=== PATIENT | male | born 1985 | race Caucasian/White ===

== ENCOUNTER 2018-04-29 13:38 | Inpatient (IN) ==
[2018-04-29] MEDS ORDERED: MORPHINE IV ONE (14:12)
[2018-04-29] MEDS ORDERED: ZOSYN 3.375 GM in NS 50 ML IV ONE (14:12)
[2018-04-29] MEDS ORDERED: ZOFRAN IV ONE (14:12)
[2018-04-29] MEDS ORDERED: NS 1,000 ML IV ONE (14:12)
--- NOTE | 2018-04-29 14:29 | Diag Imaging Result Doc PS360 ---
EXAM: CHEST-PORTABLE HISTORY: Short of breath TECHNIQUE: Portable chest COMPARISON: None. FINDINGS: The lungs are well expanded. The heart is not enlarged. There right jugular portacatheter. No pneumothorax. The vessels are not distended. There are no infiltrates. No effusion identified. There are thoracic rods. IMPRESSION: Negative exam. Electronically signed by Reinaldo Isabel 04/29/2018 2:26 PM
[2018-04-29 15:48] LABS: BASO# 0.19 X1000 (0.0-0.2); BASO% 1.2 % (0.0-0.8); EOS# 0.17 X1000 (0.0-0.7); HEMATOCRIT 39.7 % (42.0-52.0); HEMOGLOBIN 13.7 g/dL (14.0-18.0); IMM GRAN% 5.5 % (0.0-0.5); LYMPH# 1.72 X1000 (1.2-3.4); LYMPH% 10.6 % (20.5-51.1); MCH 27.9 PG (27-31); MCHC 34.5 g/dL (33-37); MCV 80.9 FL (81-99); MONO# 1.38 X1000 (0.11-0.59); MONO% 8.5 % (1.7-9.3); MPV 10.8 FL (7.4-10.4); NEUT# 11.86 X1000 (1.4-6.5); NEUT% 73.2 % (42.2-75.2); PLT 181 X1000 (130-400); RBC 4.91 XMIL (4.7-6.1); RDW 15.5 % (11.5-14.5); WBC 16.22 X1000 (4.8-10.8)
[2018-04-29 15:54] LABS: INR 0.98; PROTIME 13.8 Seconds (11.0-16.0)
[2018-04-29 16:07] LABS: ESTIMATED GFR > 60
[2018-04-29 16:09] LABS: AGAP 15; ALBUMIN 2.8 g/dL (3.5-5.0); ALKALINE PHOSPHATASE 223 U/L (32-122); BUN 8 mg/dL (8-22); C REACTIVE PROT QUANT 91.99 mg/L (0.00-5.00); CALCIUM 8.5 mg/dL (8.8-10.2); CHLORIDE 80 mmol/L (98-107); COSMO 249; CREATININE 0.6 mg/dL (0.7-1.2); GLUCOSE 87 mg/dL (70-104); GOT 16 U/L (10-34); GPT 11 U/L (10-44); POTASSIUM 3.9 mmol/L (3.5-5.1); SODIUM 125 mmol/L (136-145); TCO2 30 mmol/L (25-35); TOTAL BILIRUBIN 0.34 mg/dL (0.20-1.00); TOTAL PROTEIN 5.5 g/dL (6.3-8.3)
--- NOTE | 2018-04-29 16:51 | PROVIDER DOCUMENTATION ---
This chart was entered by Kimmie oRjas Scribe, acting as scribe for Marcial Candelario MD. HPI-General Adult - General Stated Complaint: POSS SEPSIS Time Seen by Provider: 04/29/18 14:09 Source: patient Allergies/Adverse Reactions: Patient Allergies Allergy/AdvReac Type Severity Reaction Status Date / Time No Known Allergies Allergy Verified 04/29/18 15:55 - History of Present Illness -Gen Adult Nature of Presenting Problems: Patient is a 32 year old male who presents to the ED with possible sepsis. Dr. Garrison's staff member stated patient was getting blood work done today and found drainage coming from patient's port. Patient denies fever and chills. Patient has carcinoma with unknown origin. Patient states generalized body aches. Patient states receiving one dose of Vanc at [facility] prior to arrival. Location of Pain/Injury: reports: generalized Pain Radiation: reports: no radiation Quality of Pain: reports: aching Severity: reports: mild Onset/Duration: reports: unsure Timing: reports: still present Context/Activities at Onset: reports: light activity Modifying Factors: improves with: nothing Associated Symptoms: reports: denies symptoms Similar Symptoms Previously?: No Recently seen or treated by another doctor?: Yes Review of Systems - Adult - REVIEW OF SYSTEMS - ADULT Constitutional: reports: no symptoms reported. denies: chills, fever, fatique Eyes: reports: no symptoms reported Ears, Nose, Mouth & Throat: reports: no symptoms reported Cardiovascular: reports: no symptoms reported Respiratory: reports: no symptoms reported Gastrointestinal: reports: no symptoms reported Genitourinary: reports: no symptoms reported Musculoskeletal: reports: muscle aches (generalized). denies: back pain, neck pain Integumentary: reports: no symptoms reported Neurological: reports: no symptoms reported Psychiatric: reports: no symptoms reported Endocrine: reports: no symptoms reported Hematologic/Lymphatic: reports: no symptoms reported Allergic/Immunologic: reports: no symptoms reported All Other Systems: Reviewed and Negative Past History - Adult - PAST MEDICAL HISTORY-ADULT Review of Records: reports: Nursing Assessment Review, Medications Reviewed, Social history reviewed & non-contributory. Major Childhood Illnesses: reports: denies history Cardiovascular: reports: denies history Respiratory: reports: denies history Gastrointestinal: reports: denies history Obstetrical/Gynecological: reports: denies history Genitourinary: reports: denies history Musculoskeletal: reports: denies history Neurological: reports: denies history Psychiatric: reports: denies history Endocrine/Immune: reports: denies history Other Conditions: reports: denies history - PRIOR SURGERIES/PROCEDURES Surgical/Procedure History: reports: reviewed, not pertinent - IMMUNIZATION STATUS Childhood Immunizations: See Nurse Assessment Flu Vaccine: See Nurse Assessment - FAMILY HISTORY Family History: reviewed, not pertinent - SOCIAL HISTORY Smoking: cigarettes (former) Substance Use: denies Physical Exam-General - PHYSICAL EXAM-ADULT Initial Vital Signs Reviewed: Yes - CONSTITUTIONAL General Appearance: alert, no apparent distress, thin, other (ill in appearance) - HEAD, EARS, NOSE, MOUTH & THROAT HENMT: other (dry mucous membranes. ulcer to left lower lip) - RESPIRATORY Respiratory: lungs clear, normal breath sounds, other (port to right upper chest wall with tenderness on palpation. active bleeding from port to right upper chest.) - CARDIOVASCULAR Cardiovascular: normal peripheral pulses, regular rate, rhythm - GASTROINTESTINAL (ABDOMEN) Abdominal Exam: distended, tenderness (RUQ), other (cath to RLQ.) - MUSCULOSKELETAL Extremity: other (well healing 2cm by 1 cm skin ulcer to anterior lateral left foot) - SKIN Integumentary: normal color, warm/dry, other (decreased turgor. spooning to all finger nails. well healing 2cm by 1 cm skin ulcer to anterior lateral left foot) - NEUROLOGIC Neurologic: grossly normal - PSYCHIATRIC Psych/Mental Status: normal mood/affect, oriented x 3 Progress - PLAN OF CARE/RESULTS Progress/Plan/Lab Results: Orders Category Date Time Status Saline Loc NOW Care 04/29/18 14:02 Active Vital Signs Order Q 4-HR ASSESS Care 04/29/18 14:01 Active CHEST-PORTABLE [RAD] Stat Exams 04/29/18 14:03 Ordered BLOOD CULTURE [BLDCUL] Stat Lab 04/29/18 14:03 Uncollected C REACTIVE PROT QUANT [CHEM] Stat Lab 04/29/18 14:03 Uncollected CBC WITH ELECTRONIC DIFF [HEME] Stat Lab 04/29/18 14:03 Uncollected COMPREHENSIVE METABOLIC PANEL [CHEM] Stat Lab 04/29/18 14:03 Uncollected INFLUENZA SCREEN A/B Stat Lab 04/29/18 14:03 Uncollected LACTATE, PLASMA [CHEM] Stat Lab 04/29/18 14:03 Uncollected PRO B-NATRIURETIC PEPTIDE Stat Lab 04/29/18 14:03 Uncollected PROTIME WITH INR [COAG] Stat Lab 04/29/18 14:03 Uncollected TROPONIN T Stat Lab 04/29/18 14:03 Uncollected URINALYSIS W/POSS RFLX CULT [URINALYSIS] Stat Lab 04/29/18 14:03 Uncollected 0.9% Sodium Chloride Inj [Ns] 1,000 ml Med 04/29/18 14:12 Active IV 999 mls/hr Morphine Med 04/29/18 14:12 Discontinued 4 mg IV NOW ONE Ondansetron [Zofran] Med 04/29/18 14:12 Discontinued 4 mg IV NOW ONE Piperacillin/Tazobactam [Zosyn] 3.375 gm Med 04/29/18 14:12 Active 0.9% Sodium Chloride Inj [Ns] 50 ml IV NOW EKG [EKG] Stat Ther 04/29/18 14:02 Ordered Result Diagrams: 04/29/18 14:53 04/29/18 14:53 - REASSESSMENT Reassessment #1 Time Reassessed: 16:44 Status: improving (Patient has 2 SIRS criteria only, does not have any other signs of severe sepsis. Given IV vanc/zosyn) - EKG 1 Time of EKG reading by physician:: 16:11 EKG Read and Signed by:: Marcial Candelario EKG Interpretation (*Must complete 3 of following elements*): Abnormal Rate: 93 Rhythm: normal sinus rhythm [place]: right [place] Interval: normal Comments: low voltage QRS; nonspecific T wave abnormality. - XRAY 1 XRAY Study: Chest Impression: See EMR Report (EXAM: CHEST-PORTABLE HISTORY: Short of breath TECHNIQUE: Portable chest COMPARISON: None. FINDINGS: The lungs are well expanded. The heart is not enlarged. There right jugular portacatheter. No pneumothorax. The vessels are not distended. There are no infiltrates. No effusion identified. There are thoracic rods. IMPRESSION: Negative exam. Electronically signed by Reinaldo Isabel 04/29/2018 2:26 PM 04/29/18 142 Interpreting Physician: Reinaldo Isabel MD Dictated Date/Time: 04/29/18 1426 cc: Marcial Candelario MD; None,PCP) - CONSULTS/PCP/HOSPITALIST Notification #1 *Consult/PCP/Hospitalist*: Scott Time Discussed: 16:45 Consult Disposition: Will see in ED Departure - Departure Date of Disposition Decision: 04/29/18 Time of Disposition Decision: 16:45 DIAGNOSIS: Liver metastases Sepsis Qualifiers: Sepsis type: sepsis due to unspecified organism Qualified Code(s): A41.9 - Sepsis, unspecified organism Infected venous access port Qualifiers: Encounter type: initial encounter Qualified Code(s): T80.219A - Unspecified infection due to central venous catheter, initial encounter Disposition: ADMITTED INPATIENT 09 Certified Medical Emergency: Emergent Condition: Stable Referrals and Follow-Ups: None,PCP [Primary Care Provider] - - Critical Care Note This patient required my direct & personal management of CC.: No Attestation - Physician/ MUNIRA Attestation Patient care was provided by Advanced Practice Provider:: No The physician spent face to face time with patient:: Yes Advanced Practice Provider documentation review:: Supervising physician onsite and consulted in the evaluation and care of this patient. The physician did have a face to face encounter with the patient. This chart was documented by the indicated scribe, (Kimmie Rojas Scribe) and accurately reflects the services I performed and decisions made by me, Marcial Candelario MD, as attested by the provider's signature.
[2018-04-29] MEDS ORDERED: VANCOMYCIN IV PER PHARMACY MISC SCH (17:31)
[2018-04-29] MEDS ORDERED: LASIX IV ONE (17:31)
--- NOTE | 2018-04-29 18:03 | HISTORY AND PHYSICAL ---
PRIMARY ONCOLOGIST: Dr. Rossy Garrison. HISTORY OF PRESENT ILLNESS: This is a 32-year-old male who presented to the emergency department with possible sepsis. Patient went to see Dr. Garrison this morning and one of her staff members were trying to get blood from his port but it was not successful and actually what they found was purulent drainage coming out. The patient reports not having any fever or chills. He was feeling completely fine. He reports that he has nausea almost all of the time. He reports that during the last 2 to 3 months he noticed some abdominal swelling, so he finally went to the ER in [place] on March 03, 2018. He had a CT of abdomen and pelvis that showed a large mass 7.6 x 8.1 cm on the liver with other small low density masses. He was also found to have a right pleural effusion. He was admitted to [facility]. He had a paracenteses and then he got a port placed. Actually, the source of the cancer is unknown. He went to see Dr. Garrison in the office, where they found out that the patient had a port infection. The patient is going to be admitted for further evaluation and treatment. 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 He already tolerated 1 cycle of chemotherapy, FOLFOX. PAST SURGICAL HISTORY: 1. Port placement in [facility] last February 2018. 2. Right testicular torsion in 2015 with right orchectomy. 3. Spinal fusion in 1998. 4. Liver biopsy on February 2018. SOCIAL HISTORY: Patient reports smoking. He smokes about a half a pack per day for the last 15 years. He used to drink alcohol, but he stopped doing that 4 months ago. He denies using any illicit drugs. FAMILY HISTORY: He had a 29-year-old sister with mental illness but no remarkable family history. ALLERGIES. Non known drug allergies REVIEW OF SYSTEMS: Eleven systems were reviewed and all symptoms are related to H P. PHYSICAL EXAMINATION: VITAL SIGNS: Temperature 98.4 degrees, heart rate 92, respiratory rate 20, blood pressure 113/72, O2 saturation 100% on room air. GENERAL EXAMINATION: This is a chronically ill-looking and cachectic, 32-year- old male, lying in bed, in no acute distress. HEENT: Head is normocephalic, atraumatic. Mucous membranes very dry. Anicteric sclerae. Pale conjunctivae. NECK: No JVD noted. No carotid bruits. No lymphadenopathy. No thyromegaly. CARDIOVASCULAR: S1, S2 heard. No murmurs, gallops, or rubs. Regular rate and rhythm. RESPIRATORY: Minimal coarse breath sounds in both pulmonary bases. Patient is not using any accessory muscles or having work of breathing. ABDOMEN: Distended, ascites. Catheter in the right side. Bowel sounds present. Not painful to palpation. No signs of peritoneal irritation. EXTREMITIES: No clubbing or cyanosis, but mild edema in both lower extremities , 1+. Peripheral pulses present. NEUROLOGICAL: The patient is a little bit sleepy I think because he just received pain medications, but moves 4 extremities spontaneously. Speech is coherent. LABORATORY DATA: Pending at the time of dictation. White cell count 16.22, hemoglobin 13.7, hematocrit 39.7, platelets 181,000. INR is normal. Sodium 125, alkaline phosphatase 223. C- reactive protein 99.99. ASSESSMENT AND PLAN: 1. Port infection. We will start broad-spectrum antibiotics with vancomycin and meropenem. Blood cultures and urine culture have been drawn. We will see what it shows. We will keep checking CBC and BMP daily. 2. 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 We will consult Dr. Garrison and we will follow recommendations. 3. Malnutrition. Will provide regular diet and Ensure with each meal. 4. Hyponatremia, most likely related to cancer and syndrome of inappropriate antidiuretic hormone. Considering his abnormal liver function tests, we are not going to provide Samsca. Actually what we will provide is Lasix because he looked like volume overload with lower extremity edema. 5. Gastroesophageal reflux disease. We will continue with Protonix but IV q.12 hours. 6. Regarding port infection, we will consult Surgery to remove it. 7. Further recommendations to follow according to the clinical situation of the patient. cc: Anjel Vega MD [facility]OSPITALNicolas
[2018-04-29 18:09] LABS: URINE SOURCE CLEAN CATCH
[2018-04-29 18:18] LABS: BILIRUBIN URINE NEGATIVE (NEGATIVE); BLOOD URINE NEGATIVE (NEGATIVE); COLOR YELLOW; GLUCOSE URINE NEGATIVE (NEGATIVE); KETONE URINE NEGATIVE (NEGATIVE); LEUKOCYTES URINE NEGATIVE (NEGATIVE); NITRITE URINE NEGATIVE (NEGATIVE); PROTEIN URINE NEGATIVE (NEGATIVE); SP GRAVITY URINE 1.001; TURBIDITY URINE CLEAR (CLEAR); UROBILINOGEN URINE NORMAL (NORMAL)
[2018-04-29 18:19] LABS: UR EPITHELIAL CELLS <10 /HPF (<10); URINE BACTERIA NEGATIVE /HPF; URINE RBC <10 /HPF (<10); URINE WBC <10 /HPF (<10)
[2018-04-29] MEDS: PHENERGAN IV PRN (19:00)
[2018-04-29] MEDS: DILAUDID IV PRN (19:01)
[2018-04-29] MEDS ORDERED: VANCOMYCIN 2,000 MG in NS 500 ML IV ONE (20:00)
[2018-04-29] MEDS: MERREM 1 GM in NS 50 ML IV SCH (20:10)
[2018-04-29] MEDS ORDERED: SODIUM CHLORIDE 0.9% INJ PRN (23:16)
[2018-04-30] MEDS: DILAUDID IV PRN ×6 (00:34→23:16)
[2018-04-30] MEDS: MERREM 1 GM in NS 50 ML IV SCH ×3 (02:17→18:42)
[2018-04-30 07:43] LABS: BASO# 0.04 X1000 (0.0-0.2); BASO% 0.3 % (0.0-0.8); EOS# 0.04 X1000 (0.0-0.7); EOS% 0.3 % (0.0-10.0); HEMATOCRIT 38.8 % (42.0-52.0); HEMOGLOBIN 12.9 g/dL (14.0-18.0); IMM GRAN# 0.66 X1000 (0.0-0.04); IMM GRAN% 4.2 % (0.0-0.5); LYMPH# 1.41 X1000 (1.2-3.4); LYMPH% 8.9 % (20.5-51.1); MCH 27.2 PG (27-31); MCHC 33.2 g/dL (33-37); MCV 81.7 FL (81-99); MONO# 1.48 X1000 (0.11-0.59); MONO% 9.3 % (1.7-9.3); MPV 10.3 FL (7.4-10.4); NEUT# 12.23 X1000 (1.4-6.5); PLT 237 X1000 (130-400); RBC 4.75 XMIL (4.7-6.1); RDW 15.6 % (11.5-14.5); WBC 15.86 X1000 (4.8-10.8)
--- NOTE | 2018-04-30 07:44 | EKG Report ---
Test Performed on : 04/29/2018 4:11:26 PM Test Reason : short of breath Blood Pressure : / mmHG Vent. Rate : 093 BPM Atrial Rate : 093 BPM P-R Int : 148 ms QRS Dur : 082 ms QT Int : 422 ms P-R-T Axes : 000 124 141 degrees QTc Int : 524 ms Normal sinus rhythm. Right axis deviation Low voltage QRS Nonspecific T wave abnormality Abnormal ECG When compared with ECG of 29-APR-2018 16:11, (Unconfirmed) QT has lengthened Unconfirmed Result
[2018-04-30 08:04] LABS: AGAP 16; ALB/GLOB RATIO 0.8; ALBUMIN 2.5 g/dL (3.5-5.0); ALKALINE PHOSPHATASE 197 U/L (32-122); BUN 7 mg/dL (8-22); CALCIUM 8.2 mg/dL (8.8-10.2); CHLORIDE 82 mmol/L (98-107); COSMO 256; CREATININE 0.5 mg/dL (0.7-1.2); ESTIMATED GFR > 60; GLUCOSE 119 mg/dL (70-104); GOT 12 U/L (10-34); GPT 10 U/L (10-44); POTASSIUM 2.9 mmol/L (3.5-5.1); SODIUM 128 mmol/L (136-145); TCO2 30 mmol/L (25-35); TOTAL BILIRUBIN 0.29 mg/dL (0.20-1.00); TOTAL PROTEIN 5.5 g/dL (6.3-8.3)
[2018-04-30] MEDS: VANCOMYCIN 1,800 MG in NS 250 ML IV SCH ×2 (09:24→20:46)
[2018-04-30] MEDS: PHENERGAN IV PRN ×2 (09:26→14:40)
--- NOTE | 2018-04-30 16:48 | GENERAL SURGERY CONSULTATION ---
DATE: 04/30/2018 HISTORY OF PRESENT ILLNESS: This is a 32-year-old gentleman with metastatic carcinoma of unknown primary. He is undergoing adjuvant therapy. He had a port placed a month ago in [place] and has apparently been nonfunctional and is now exposed. He is admitted for management of this. Dr. Garrison is his oncologist. MEDICAL HISTORY: Metastatic carcinoma on pulse ox therapy. SURGICAL HISTORY: Port, right testicular torsion repair with orchiectomy, spinal fusion, liver biopsy. SOCIAL HISTORY: He does smoke and drink. Denies illicits. FAMILY HISTORY: Reviewed noncontributory. REVIEW OF SYSTEMS: Ten point negative. PHYSICAL EXAMINATION: Vital Signs: Temp 98.1, , pulse 106, blood pressure 115/79, oxygen saturation 100%. General: Is alert. HEENT: There is no scleral icterus. There is a right internal jugular vein port that is exposed at the subclavicular incision. Cardiovascular: Normal rate. Pulmonary: No increased work of breathing. Abdomen: Soft. Integument: Warm and dry. Musculoskeletal: Cachectic. Psychiatric: Appropriate affect. Neurologic: No gross deficits. Lymphatic: Does have bilateral lower extremity edema. LABORATORY: White count 15, hematocrit 38. Creatinine 0.5, potassium low at 2.9, sodium is 128. Bilirubin is normal. No pertinent imaging. ASSESSMENT AND PLAN: A 32-year-old gentleman with exposed port in the right internal jugular vein. I have discussed risks of bleeding, infection, delayed healing and need for subsequent replaceable. He consents to removal. We will go to the operating room tomorrow for this. cc: Angelito Son MD
[2018-04-30] MEDS ORDERED: DILAUDID IV PRN (17:36)
--- NOTE | 2018-04-30 18:16 | PROGRESS NOTE ---
DATE: 04/30/2018 INTERVAL HISTORY: No acute events. The patient was evaluated by surgical team and they are planning to remove the port tomorrow. So far the blood culture has not shown any growth. SUBJECTIVE: Patient is complaining of generalized pain in his back, abdomen. He also complains of nausea and vomiting. He has been eating okay. He states that he would like to be in the hospital post seizure and would like to go home on Friday if his procedure goes well tomorrow. VITAL SIGNS: Currently temperature 98.1, pulse 106 per minute, blood pressure 115/79, saturating 99% on room air. PHYSICAL EXAMINATION: General: Cachectic, does not appear in any acute distress. HEENT: Oral cavity is moist. Air entry bilaterally equal. No wheezes, rhonchi or crackles. Cardiovascular: S1, S2 normal. No murmur, rub or gallop. Tachycardic. Chest: He has a right-sided chest port. Abdomen: He has ascites. He also has right-sided lower quadrant abdominal drain. He has diffuse abdominal tenderness. Extremities: He has bilateral lower extremity edema. LABS: Labs suggestive of persistent leukocytosis, normocytic anemia, hyponatremia, hypochloremia, hypokalemia, normal kidney function. ASSESSMENT AND PLAN: 1. Sepsis from infected right-sided chest port. Continue intravenous vancomycin and intravenous Meropenem. Surgery planning removal of port on 05/01/2017. Follow up final blood culture results. 2. Hypokalemia, being repleted. 3. Hyponatremia, hypochloremia. Follow up urine sodium and urine creatinine. 4. Chest pain with history of spinal surgery and diffuse abdominal pain in the setting of ascites and malignancy. The patient requested to increase the pain medication dose considering his cancer and cancer related pain. I will increase his hydromorphone dose and also space apart dosing to every 4 hours. I will also start him on MiraLAX to avoid constipation. 5. Metastatic carcinoma affecting liver with unknown primary. The patient has been started on FOLFOX. Hematology has been consulted. 6. Disposition: Patient remains inside the hospital as we await final blood culture results and port removal. Plan of care was discussed with him. All of his questions have been answered. cc: MD TIA Torres
[2018-04-30] MEDS: MIRALAX PO SCH (19:42)
[2018-04-30] MEDS: PHENERGAN PO PRN (20:46)
[2018-04-30] MEDS: TYLENOL PO SCH (20:51)
[2018-04-30] MEDS: KLOR-CON PO SCH (20:59)
[2018-05-01 00:04] LABS: UR CREAT RANDOM 56.6 mg/dL (14-26)
[2018-05-01] MEDS: TYLENOL PO SCH ×5 (00:50→22:50)
[2018-05-01] MEDS: KLOR-CON PO SCH ×2 (01:25→04:57)
[2018-05-01] MEDS: MERREM 1 GM in NS 50 ML IV SCH ×3 (03:55→19:47)
[2018-05-01] MEDS: DILAUDID IV PRN ×2 (04:08→08:57)
[2018-05-01] MEDS ORDERED: SENSORCAINE-MPF 0.5%/EPI 1:200,000 ONE (06:19)
[2018-05-01] MEDS ORDERED: DIPRIVAN 1% ONE ×2 (06:37→06:38)
[2018-05-01] MEDS ORDERED: VERSED ONE (06:38)
[2018-05-01] MEDS ORDERED: ROBINUL ONE (06:38)
[2018-05-01] MEDS ORDERED: XYLOCAINE-MPF 2% ONE (06:38)
[2018-05-01] MEDS ORDERED: KETAMINE ONE (06:42)
[2018-05-01] MEDS: VANCOMYCIN 1,800 MG in NS 250 ML IV SCH (07:35)
--- NOTE | 2018-05-01 09:16 | OPERATIVE NOTE ---
PROCEDURE DATE: 05/01/2018 PREOPERATIVE DIAGNOSES: 1. Exposed port. 2. Metastatic carcinoma. 3. Poor peripheral access. POSTOPERATIVE DIAGNOSES: 1. Exposed port. 2. Metastatic carcinoma. 3. Poor peripheral access. PROCEDURES PERFORMED: 1. Removal of right internal jugular vein port. 2. Placement of triple-lumen 7-Trinidadian central line in the right femoral vein. ANESTHESIA: MAC with local. ESTIMATED BLOOD LOSS: 5 mL. SPECIMENS: Catheter tip for culture as well as culture of the wound cavity. INDICATIONS: A 32-year-old gentleman, who had a port placed at an outside facility for palliative chemotherapy for metastatic carcinoma present. It was placed last month, and he has exposure of his port noted at this time. OPERATIVE FINDINGS: 1. There was a port in the right subclavian that was exposed. There was no gross purulence. 2. Normal vascular anatomy of the right groin. OPERATIVE NOTE: Risks, benefits, and alternatives were discussed with the patient, consented to procedure. Surgical site was marked. He was taken operating room and placed in supine position, and IV anesthesia was administered. His right neck was prepped with Betadine and draped usual fashion. After time-out, we injected local anesthetic and made his previous incision, which was open slightly larger and removed the port and suture material in its entirety holding pressure of the neck for several minutes. We noted hemostasis. We loosely reapproximated the skin edge to facilitate ongoing drainage. We did take cultures of the wound cavity as well, sent the tip for culture. A gauze, Medipore dressing was applied. He tolerated this portion well. He had very difficult peripheral access. As such, we discussed placing a central line. We prepped his right groin with chlorhexidine solution and draped in usual fashion. After time-out, we palpated the femoral artery, injected local anesthetic, and accessed the femoral vein medial to the artery. Dark nonpulsatile venous blood was noted on return. The wire threaded easily. Skin ashish was made, and the tract was dilated. Pre-flushed triple-lumen 7-Trinidadian catheter was advanced. It was secured with a silk suture. All ports withdrew blood and flushed without resistance. Dressing was applied. He tolerated it well. There was no complication. cc: Angelito Son MD
[2018-05-01] MEDS: PHENERGAN PO PRN ×2 (09:54→20:13)
[2018-05-01 12:02] LABS: BASO# 0.03 X1000 (0.0-0.2); BASO% 0.2 % (0.0-0.8); EOS# 0.01 X1000 (0.0-0.7); EOS% 0.1 % (0.0-10.0); HEMATOCRIT 41.1 % (42.0-52.0); HEMOGLOBIN 13.4 g/dL (14.0-18.0); IMM GRAN# 0.36 X1000 (0.0-0.04); IMM GRAN% 2.5 % (0.0-0.5); LYMPH# 1.48 X1000 (1.2-3.4); LYMPH% 10.3 % (20.5-51.1); MCHC 32.6 g/dL (33-37); MCV 82.7 FL (81-99); MONO# 1.35 X1000 (0.11-0.59); MONO% 9.4 % (1.7-9.3); MPV 10.5 FL (7.4-10.4); NEUT# 11.16 X1000 (1.4-6.5); NEUT% 77.5 % (42.2-75.2); PLT 236 X1000 (130-400); RBC 4.97 XMIL (4.7-6.1); RDW 15.9 % (11.5-14.5); WBC 14.39 X1000 (4.8-10.8)
[2018-05-01 12:17] LABS: AGAP 13; ALB/GLOB RATIO 0.8; ALBUMIN 2.5 g/dL (3.5-5.0); ALKALINE PHOSPHATASE 209 U/L (32-122); BUN 6 mg/dL (8-22); CALCIUM 8.5 mg/dL (8.8-10.2); CHLORIDE 85 mmol/L (98-107); COSMO 257; CREATININE 0.5 mg/dL (0.7-1.2); ESTIMATED GFR > 60; GLUCOSE 104 mg/dL (70-104); GOT 13 U/L (10-34); GPT 9 U/L (10-44); POTASSIUM 3.7 mmol/L (3.5-5.1); SODIUM 129 mmol/L (136-145); TCO2 31 mmol/L (25-35); TOTAL BILIRUBIN 0.28 mg/dL (0.20-1.00); TOTAL PROTEIN 5.7 g/dL (6.3-8.3)
--- NOTE | 2018-05-01 12:48 | PROGRESS NOTE ---
DATE: 05/01/2018 INTERVAL HISTORY: His right-sided chest port was removed. There was no obvious pus, but there was some serosanguineous discharge in the surrounding area as per the surgical note. He also got right-sided groin central venous catheter for intravenous access. SUBJECTIVE: The patient is feeling fine. He wanted to go home. I discussed with him about waiting for final culture results. VITAL SIGNS: Currently temperature 97.4 degrees, pulse 95, blood pressure 115/ 71, saturating 97% on room air. PHYSICAL EXAMINATION: General: Appears cachectic, not in any acute distress. ENT: Oral cavity is moist. Lungs: Air entry bilaterally equal. No wheeze, rhonchi, crackles. S1, S2 normal. No murmur, rub, or gallop. Tachycardic. Right-sided chest port has been removed, and there is a dressing overlying. He has ascites, right-sided lower quadrant abdominal drain not attached to back. Diffuse abdominal tenderness, only mild. Bilateral lower extremity edema extending up to mid leon levels. LABS: Suggestive of persistent leukocytosis as of yesterday. Repeat CBC and BMP are pending today. MICROBIOLOGY: Culture from the port site is growing gram-negative chase. Further culture and sensitivity are pending. ASSESSMENT AND PLAN: 1. Sepsis from infected right-sided chest port with drainage growing gram- negative chase. Continue intravenous vancomycin and intravenous meropenem until final culture and sensitivity are back. He is status post removal of infected port on May 01. Follow up blood culture has no growth to date. My plan is to await final culture/sensitivity results. Change his antibiotics to oral before discharge. 2. Hyponatremia, hypochloremia, hypokalemia. Improving. Follow up urine sodium, urine creatinine and osmolality. Follow-up repeat BMP. 3. History of spinal surgery and diffuse abdominal tenderness in the setting of ascites and malignancy. Change intravenous pain medications to oral as pain is better controlled now. He has had good bowel movements. Appreciate surgical team's help to get a bag for his abdominal drain. 4. History of metastatic carcinoma affecting the liver with unknown primary. He is status post 1 cycle of FOLFOX. After discussion with Hematology/Oncology nurse, plan would be to get another port placed as an outpatient once his infection has resolved,and plan further chemotherapy cycles. 5. Disposition: The patient remains inside the hospital until I get the final culture and sensitivity results back. Plan of care was discussed with him. All of his questions have been answered. cc: Hayden Blancas MD MTDD
[2018-05-01] MEDS: DILAUDID PO PRN ×2 (13:03→20:11)
[2018-05-01] MEDS: MIRALAX PO SCH (13:09)
[2018-05-01] MEDS: ZOFRAN IV PRN (14:25)
--- NOTE | 2018-05-01 14:48 | HEMO/ONC PROGRESS NOTE ---
DATE: 05/01/2018 SUBJECTIVE: "I am ready to go home". OBJECTIVE: Mr. Schofield is a very pleasant 32-year-old man with metastatic carcinoma of unknown primary. He is feeling well. He had his port removed this morning and a triple lumen central line placed in the right femoral vein by Dr. Son. He feels well and is ready to go home. LABORATORY DATA: Total white blood cell count 4.39, hemoglobin 13.4, hematocrit 41.1, and platelet count 236. PHYSICAL EXAMINATION: General: The patient appears to be in no apparent distress. He is sitting quietly in his hospital bed drinking apple juice. Vital Signs: Blood pressure is 98/74, pulse 94, respirations 13, temperature 97.4 degrees Fahrenheit, and O2 saturation 99% on room air. HEENT: Head is normocephalic, atraumatic. Mucosa is pink and moist. Pupils are reactive to light. Oropharynx is clear. Neck: Supple. No lymphadenopathy or thyromegaly. Cardiovascular: S1, S2. Regular rate and rhythm. No murmurs are noted. Respiratory: Breath sounds are clear to auscultation bilaterally. No rhonchi, rales, or wheezing noted. Gastrointestinal: Soft and nontender. Slightly distended. Positive for bowel sounds. Skin: Surgical bandage to the right chest. Neurological: No focal neurological deficits. ASSESSMENT AND PLAN: 1. Metastatic carcinoma of unknown primary. He has been receiving FOLFOX and has completed 2 cycles of therapy. We are holding further chemotherapy until the acute event has resolved. 2. Port infection, status post removal and placement of a triple lumen central line to the right femoral vein by Dr. Son this a.m. Cultures are currently pending. He continues on vancomycin IV and meropenem IV. I spoke with Dr. Blancas, and he is looking at possibly discharging him tomorrow if cleared by Dr. Son. 3. Malnutrition. He is receiving Ensure with meals. 4. Ascites. He has an Aspira drain. He does not have the supplies with him to empty it. I talked with Dr. Blancas, and he is going to look into getting the supplies available for the nurses to help drain it. 5. Disposition. The patient possibly will be going home tomorrow pending Dr. Son's evaluation as well as cultures. Dr. Garrison will see him tomorrow. Again, this is KUMAR Carroll dictating for Dr. Louie Luna. Dictated by KUMAR Carroll for Louie Luna MD cc: Louie Luna MD
[2018-05-01] MEDS: LOVENOX SUBQ SCH ×2 (15:26→15:30)
[2018-05-01] MEDS ORDERED: CALMOSEPTINE OINTMENT TOP PRN (18:21)
[2018-05-01] MEDS ORDERED: LOMOTIL PO ONE (18:45)
[2018-05-02] MEDS: DILAUDID PO PRN ×5 (01:46→23:50)
[2018-05-02] MEDS: MERREM 1 GM in NS 50 ML IV SCH ×2 (02:28→12:07)
[2018-05-02] MEDS: TYLENOL PO SCH ×4 (04:48→23:08)
[2018-05-02 07:11] LABS: BASO# 0.07 X1000 (0.0-0.2); BASO% 0.5 % (0.0-0.8); EOS# 0.06 X1000 (0.0-0.7); EOS% 0.4 % (0.0-10.0); HEMATOCRIT 39.6 % (42.0-52.0); IMM GRAN# 0.31 X1000 (0.0-0.04); IMM GRAN% 2.1 % (0.0-0.5); LYMPH# 1.63 X1000 (1.2-3.4); LYMPH% 11.1 % (20.5-51.1); MCH 27.3 PG (27-31); MCHC 32.8 g/dL (33-37); MCV 83.2 FL (81-99); MONO# 1.44 X1000 (0.11-0.59); MONO% 9.8 % (1.7-9.3); MPV 10.1 FL (7.4-10.4); NEUT# 11.22 X1000 (1.4-6.5); NEUT% 76.1 % (42.2-75.2); PLT 232 X1000 (130-400); RBC 4.76 XMIL (4.7-6.1); RDW 15.8 % (11.5-14.5); WBC 14.73 X1000 (4.8-10.8)
[2018-05-02 07:29] LABS: ESTIMATED GFR > 60
[2018-05-02 07:33] LABS: AGAP 12; ALB/GLOB RATIO 0.7; ALBUMIN 2.2 g/dL (3.5-5.0); ALKALINE PHOSPHATASE 192 U/L (32-122); BUN 5 mg/dL (8-22); CALCIUM 8.3 mg/dL (8.8-10.2); CHLORIDE 86 mmol/L (98-107); COSMO 258; CREATININE 0.5 mg/dL (0.7-1.2); GLUCOSE 93 mg/dL (70-104); GOT 13 U/L (10-34); GPT 9 U/L (10-44); POTASSIUM 3.4 mmol/L (3.5-5.1); SODIUM 130 mmol/L (136-145); TCO2 32 mmol/L (25-35); TOTAL BILIRUBIN 0.28 mg/dL (0.20-1.00); TOTAL PROTEIN 5.3 g/dL (6.3-8.3)
[2018-05-02] MEDS ORDERED: VANCOMYCIN 1,800 MG in NS 250 ML IV SCH (09:00)
[2018-05-02] MEDS: MIRALAX PO SCH (09:58)
[2018-05-02] MEDS: ZOFRAN IV PRN ×3 (10:00→20:14)
[2018-05-02] MEDS: LOVENOX SUBQ SCH (11:42)
[2018-05-02] MEDS: KLOR-CON PO SCH ×3 (14:16→22:04)
[2018-05-02] MEDS: LOMOTIL PO SCH ×2 (14:16→17:49)
[2018-05-02] MEDS: KEFZOL 1 GM/D5W 1 GM/50 ML IVPB IV SCH ×2 (14:17→22:05)
[2018-05-02] MEDS ORDERED: MAGNESIUM SULFATE 2 GM/S.W.I. 2 GM/50 ML IVPB IV ONE (14:19)
[2018-05-02] MEDS ORDERED: NS 1,000 ML IV SCH (16:15)
--- NOTE | 2018-05-03 00:54 | PROGRESS NOTE ---
DATE: 05/02/2018 INTERVAL HISTORY: He continues to have diarrhea. Yesterday, A bag was applied to his right lower quadrant abdominal drain, and some amount of fluid was drained out. The patient says about a bag full, I do not know the number in terms of mL, which is not charted. SUBJECTIVE: Patient continues to have diarrhea, for which I have started diphenoxylate. The patient had started having diarrhea 2 days into antibiotics. This is likely antibiotic-associated diarrhea. VITAL SIGNS: Temperature of 98.3, pulse 110 per minute, blood pressure 129/88, saturating 100% on room air. PHYSICAL EXAMINATION: General: Does not appear in acute distress. Cachectic. Oral cavity is moist. Lungs: Air entry bilaterally equal. No wheeze, rhonchi, or crackles. Cardiovascular: S1, S2 normal. No murmur or gallop. Tachycardic. Right-sided chest port has been removed, with the nasal dressing overlying. He has ascites, right lower quadrant abdominal drain. The dressing was not changed, which I opened up, and there is localized erythema, without any warmth. Bilateral lower extremity edema, extending up to mid leon level. LABS: Suggestive of persistent leukocytosis. Hemoglobin of 13, platelet count of 232,000. Improving hyponatremia and hypochloremia. Hypokalemia, being repleted. Microbiology: One of the cultures from his port site is growing Escherichia coli. A second culture is pending. ASSESSMENT AND PLAN: 1. Sepsis, from infected right-sided chest port, with drainage, growing Escherichia coli. Change antibiotics to intravenous cefazolin. I will give him intravenous antibiotics until final results of 2nd culture comes back. My goal is to transition that to p.o. Keflex at the time of discharge. 2. Cellulitis around abdominal drain site: continue Cefazolin. 2. Hyponatremia, hypochloremia, hypokalemia because of poor p.o. intake, and now diarrhea, improving. Urine sodium was 28, and osmolality was 396. 3. History of metastatic carcinoma affecting the liver, with unknown primary. He is status post 1 cycle of FOLFOX. The patient should schedule another outpatient appointment with Hematology. At that point, repeat port placement would be discussed, and then further chemotherapy will be planned. 4. History of spinal surgery and diffuse abdominal tenderness in the setting of ascites and malignancy. Continue p.o. hydromorphone. He has been having diarrhea. 5. Diarrhea. This is likely associated with antibiotics. However, considering his tachycardia and persistent leukocytosis, I will send Clostridium difficile testing. Meanwhile, I will give him symptomatic treatment with Lomotil. 6. Disposition. The patient remains inside the hospital as we await final results of the culture. Plan of care were discussed with him. All of his questions have been answered. cc: Hayden Blancas MD MTDD
[2018-05-03] MEDS: TYLENOL PO SCH (05:00)
[2018-05-03] MEDS: KEFZOL 1 GM/D5W 1 GM/50 ML IVPB IV SCH ×3 (05:00→19:52)
[2018-05-03 07:18] LABS: BASO# 0.03 X1000 (0.0-0.2); BASO% 0.2 % (0.0-0.8); EOS# 0.04 X1000 (0.0-0.7); EOS% 0.2 % (0.0-10.0); HEMATOCRIT 39.3 % (42.0-52.0); HEMOGLOBIN 12.8 g/dL (14.0-18.0); IMM GRAN# 0.21 X1000 (0.0-0.04); IMM GRAN% 1.2 % (0.0-0.5); LYMPH# 1.67 X1000 (1.2-3.4); LYMPH% 9.2 % (20.5-51.1); MCH 27.1 PG (27-31); MCHC 32.6 g/dL (33-37); MCV 83.1 FL (81-99); MONO# 1.33 X1000 (0.11-0.59); MONO% 7.4 % (1.7-9.3); MPV 10.3 FL (7.4-10.4); NEUT# 14.81 X1000 (1.4-6.5); NEUT% 81.8 % (42.2-75.2); PLT 300 X1000 (130-400); RBC 4.73 XMIL (4.7-6.1); WBC 18.09 X1000 (4.8-10.8)
[2018-05-03] MEDS: ZOFRAN IV PRN (08:44)
[2018-05-03] MEDS: LOMOTIL PO SCH ×2 (08:44→14:18)
[2018-05-03] MEDS: DILAUDID PO PRN ×3 (08:44→19:51)
[2018-05-03] MEDS: LOVENOX SUBQ SCH (14:16)
--- NOTE | 2018-05-03 14:34 | PROGRESS NOTE ---
DATE: 05/03/2018 Interval history. Patient continues to have leukocytosis and tachycardia, continues to have diarrhea however the frequency has decreased. He has not been able to collect sample for C. Difficile. He wanted me to give him some medication for his sinus. SUBJECTIVE: He denies chest pain or shortness of breath. He has occasional nausea which is normal for him. He feels his abdominal pain is worse than he has had so far. He has not had any fevers or chills. He continues to have redness around abdominal drain site. We discussed about his leukocytosis, getting ascitic fluid studies and getting his CBC tomorrow. Answered all of his questions. VITALS: Currently temperature of 98.4, pulse of 102 per minute, blood pressure 103/64, saturating 98% on room air. OBJECTIVE: General: Appears cachectic, not in any acute distress. Oral cavity is moist. Air entry bilaterally equal. No wheeze, rhonchi, crackles. Tachycardic, S1, S2 normal. No murmur, rub or gallop. Right-sided chest port has been removed with a dressing overlying currently not soaked. He has ascites the right lower quadrant abdominal drain. The dressing was changed yesterday. There is cellulitis around the dressing site. There is abdominal tenderness general. Hypoactive bowel sounds. LABS: Suggestive of persistent leukocytosis, acceptable range of hemoglobin, hematocrit and platelet count. BMP is not done. Culture of right-sided port side both growing E coli which have been sensitive to cefazolin. ASSESSMENT AND PLAN: 1. Sepsis from infected right-sided chest port with drainage growing Escherichia coli. Blood culture are negative. Continue intravenous cefazolin. My goal is to give at least 10 days course of antibiotics in total. 2. Abdominal wall cellulitis. Continue intravenous cefazolin. Follow up with ascitic fluid studiesto rule out spontaneous bacterial peritonitis. 3. Antibiotic associated enterocolitis. He has not been able to collect stool sample which I advised him to. I will stop Lomotil until we collect stool sample and C Diff studies are back. 4. History of metastatic carcinoma affecting liver with unknown primary status post 1 cycle of FOLFOX. Patient to schedule another appointment with creative services writer as an outpatient regarding port placement and further chemotherapy. 5. For diffuse abdominal tenderness in the setting of malignant ascites and malignancy: continue p.o. hydromorphone for pain and Lasix for ascites. In future, I would consider adding Spironolactone. Appreciate Hematology recommendation about outpatient management. 7. Disposition. Patient remains inside the hospital. Plan of care is discussed with him. All of his questions have been answered. cc: Hayden Blancas MD MTDD
[2018-05-03] MEDS: LASIX PO SCH ×2 (14:45→19:51)
[2018-05-03] MEDS: ZYRTEC PO SCH (14:45)
[2018-05-03 16:16] LABS: BODY FLUID SOURCE ASCETIC FLUID; WBC BF 941 /cumm
[2018-05-03 16:21] LABS: GLUCOSE BODY FLUID 75 mg/dL
[2018-05-03 16:22] LABS: ALBUMIN BODY FLUID 1.4 g/dL; MONOS 78 %; POLYS 22 %
[2018-05-03 18:22] LABS: LDH BODY FLUID 283 U/L; TOTAL PROT BODY FLUID 2.5 g/dL
[2018-05-04] MEDS: DILAUDID PO PRN ×2 (00:02→06:03)
[2018-05-04] MEDS: ZOFRAN IV PRN ×2 (00:06→06:06)
[2018-05-04] MEDS: LASIX PO SCH ×2 (00:14→10:00)
[2018-05-04] MEDS: KEFZOL 1 GM/D5W 1 GM/50 ML IVPB IV SCH ×2 (00:14→05:57)
[2018-05-04 07:24] LABS: ESTIMATED GFR > 60
[2018-05-04 07:25] LABS: BASO# 0.03 X1000 (0.0-0.2); BASO% 0.2 % (0.0-0.8); EOS# 0.03 X1000 (0.0-0.7); EOS% 0.2 % (0.0-10.0); HEMATOCRIT 35.8 % (42.0-52.0); HEMOGLOBIN 11.9 g/dL (14.0-18.0); IMM GRAN# 0.15 X1000 (0.0-0.04); LYMPH# 1.96 X1000 (1.2-3.4); LYMPH% 13.3 % (20.5-51.1); MCH 27.3 PG (27-31); MCHC 33.2 g/dL (33-37); MCV 82.1 FL (81-99); MONO% 9.5 % (1.7-9.3); MPV 10.2 FL (7.4-10.4); NEUT# 11.19 X1000 (1.4-6.5); NEUT% 75.8 % (42.2-75.2); PLT 302 X1000 (130-400); RBC 4.36 XMIL (4.7-6.1); RDW 15.7 % (11.5-14.5); WBC 14.76 X1000 (4.8-10.8)
[2018-05-04 07:29] LABS: AGAP 12; BUN 5 mg/dL (8-22); CHLORIDE 83 mmol/L (98-107); COSMO 249; CREATININE 0.7 mg/dL (0.7-1.2); GLUCOSE 109 mg/dL (70-104); SODIUM 125 mmol/L (136-145); TCO2 30 mmol/L (25-35)
[2018-05-04 09:52] LABS: BANDS 2 % (0-1); LYMPHS 16 % (21-51); MONO 10 % (1-9); SEGS 70 % (42-75)
[2018-05-04] MEDS: ZYRTEC PO SCH (10:00)
[2018-05-04] MEDS: KLOR-CON PO SCH ×2 (11:32→15:11)
[2018-05-04] MEDS: LOVENOX SUBQ SCH (13:02)
--- NOTE | 2018-05-05 02:58 | DISCHARGE SUMMARY ---
ADMISSION DATE: 04/29/2018 DISCHARGE DATE: 05/04/2018 DISCHARGE DIAGNOSES: 1. Sepsis from infected right-sided chest port with drainage growing Escherichia coli. 2. Abdominal wall cellulitis. 3. Antibiotic associated enterocolitis, improving at the time of discharge. 4. Hyponatremia, hypochloremia, hypokalemia. 5. Sinus tachycardia. OTHER DIAGNOSES: 1. History of metastatic carcinoma to the liver with unknown primary. 2. History of ascites and bilateral lower extremity edema. 3. Chronic nausea and vomiting. 4. History of right lower quadrant abdominal drain. CONSULTATIONS DURING HOSPITALIZATION: Hematology, Dr. Rossy Garrison. IMAGING DURING HOSPITALIZATION: Chest x-ray on the 29 of April detected negative exam. VITALS: At the time of discharge, temperature 98.1 degrees, pulse 104 per minute, respiratory rate 18, blood pressure 120/86, saturating 96% on room air. PHYSICAL EXAMINATION: General: Does not appear in any acute distress. HEENT: Oral cavity is moist. Respiratory: Air entry bilaterally equal. No wheeze, rhonchi, crackles. Cardiovascular: S1, S2 normal. Tachycardic. No murmur, rub, or gallop. Abdomen: Distended with ascites. Dullness to percussion, bilateral flanks. Hypoactive bowel sounds. Nontender. Right lower quadrant abdominal drain which is clamped at the moment. He periodically attaches back to it. Extremities: Bilateral lower extremity edema. LABS: At the time of discharge, WBC of 14,000, hemoglobin of 11.9, platelets of 302,000. Sodium of 125, potassium of 3 which is being repleted, chloride of 83. Normal kidney function with creatinine of 0.7. Abdominal ascites fluid studies had suggested fluid WBC of 940 with only 22% polynuclear cells with serum ascitic albumin gradient of more than 1.1. This was likely suggestive of portal hypertension with malignant ascites. DISCHARGE MEDICATIONS: 1. Cephalexin 500 mg b.i.d., 14 capsules. 2. Cetirizine 10 mg daily. 3. Hydromorphone 2 mg p.o. q.4 hours p.r.n. for pain. 4. Calmoseptine ointment 1 tube. 5. Promethazine 12.5 mg p.o. q.6 hours for nausea and vomiting. 6. Spironolactone 25 mg p.o. b.i.d. DISCHARGE INSTRUCTIONS: The patient was advised to follow up with a basic metabolic panel 3 days after discharge. He was advised to complete the course of antibiotics for port infection as well as abdominal wall cellulitis around the port site. HOSPITAL COURSE SUMMARY: Mr. Schofield is a 32-year-old, man who presented from his liability claims representative/oncologist's office when he went there for his routine appointment and the office staff was unable to get blood from his port and had found purulent drainage coming out. He had placed that port for recent diagnosis of about 7 x 8 cm liver mass in February 2018 with unknown primary and he was receiving chemotherapy through the port. He was immediately referred to the emergency room. In the emergency room, chest x-ray was unremarkable. He was started on broad- spectrum intravenous antibiotics and surgery was consulted. Surgery, Dr. Tristian Son, eventually exposed the port and it was removed. He was continued on antibiotics. For drain, the purulence around the port had detected E. coli infection and the intravenous antibiotics were changed to intravenous cefazolin, which was at the time of discharge changed to p.o. cephalexin. While in the hospital, he was also noticed to have redness around the abdominal drain, which he had to drain his ascites and so ascitic fluid studies were sent which had suggested WBC count of 900 with only 20% polymorphonuclear and serum to ascites albumin gradient of more than 1.1, suggestive of malignant ascites related to his liver malignancy with portal hypertension. He was continued on p.o. Keflex. He was also noticed to have ascites and bilateral lower extremity edema for which he was initially started on furosemide. However, he does have hyponatremia which appears to be chronic for him and so the diuretics were changed to spironolactone. That, he would be discharged on. He should get repeat BMP done to check his electrolytes and follow up with his regular doctor. He should also follow up with primary oncologist and discuss the results of it. For his antibiotic associated enterocolitis, stool C. difficile testing was ordered. However, his diarrhea had decreased in frequency and he could not collect the stool C. difficile. For a history of metastatic carcinoma affecting liver of unknown primary, status post 1 cycle of FOLFOX as outpatient. He was advised to schedule another appointment with oncology as an outpatient and discuss about another port placement once his infection is resolved. DISPOSITION: The patient will be discharged to home. More than 30 minutes were spent in discharging this patient. All of his questions have been answered. cc: MD TIA Torres
== END 2018-05-04 15:50 | disposition home health service (06) | DRG 314 ==
LOC: ED 13:38 → SUATTDRO 17:54 → EDIPHOLD 17:54 → 3N 22:28
PROVIDERS: ATTEND Internal Medicine
CPT/HCPCS: 71010; 71045; 80048; 80053; 80202; 81001; 82040; 82042; 82570; 82945; 83605; 83615; 83735; 83880; 83935; 84157; 84300; 84484; 85025; 85610; 86140; 87040; 87070; 87075; 87077; 87186; 87205; 87275; 87276; 87324; 87449; 87804; 88300; 89051; 93005; 96361; 96365; 96366; 96367; 96375; 99285; A9270; J0690; J1170; J1650; J1940; J2185; J2250; J2270; J2405; J2543; J2550; J3370; J3475; J7030; J7040; J7050

== ENCOUNTER 2018-05-28 08:58 | Inpatient (IN) ==
[2018-05-28] MEDS ORDERED: ZOFRAN IV ONE (10:48)
[2018-05-28] MEDS ORDERED: DILAUDID IV ONE ×2 (10:48→15:37)
--- NOTE | 2018-05-28 10:56 | PROVIDER DOCUMENTATION ---
HPI-Abdominal Pain/GI Problem - General Chief Complaint: Abdominal Pain Stated Complaint: ABD PAIN Time Seen by Provider: 05/28/18 09:17 Source: patient Allergies/Adverse Reactions: Patient Allergies Allergy/AdvReac Type Severity Reaction Status Date / Time No Known Allergies Allergy Verified 04/29/18 15:55 Home Medications: Home Medication List Medication Instructions Recorded Confirmed Last Taken Type Cephalexin [Keflex] 500 mg PO BID #14 cap 05/04/18 Unknown Rx Cetirizine [Zyrtec] 10 mg PO DAILY tablet 05/04/18 Unknown Rx Hydromorphone [Dilaudid] 2 mg PO Q4H PRN PRN #50 tab 05/04/18 Unknown Rx Menthol/Zinc Oxide Ointment 1 gm TOP PRN PRN #1 tube 05/04/18 Unknown Rx [Calmoseptine Ointment] Promethazine [Phenergan] 12.5 mg PO Q6H PRN PRN #30 tab 05/04/18 Unknown Rx Spironolactone 25 mg PO BID #60 tab 05/04/18 Unknown Rx - History of Present Illness-ABD Nature of Presenting Problems: Pt c/o generalized abdo pain and notes that he last had a BM on Friday. Pt has hx of Ca and is on chronic pain meds. Abdominal Pain Onset Location: reports: generalized abdomen Pain Radiation: reports: no radiation Quality of Pain: reports: aching, cramping, fullness Severity in ED: reports: moderate Onset/Duration: reports: 1 hour ago Timing: reports: still present, getting worse Activities at Onset: reports: rest Exposure to sick contacts?: No Modifying Factors: improves with: nothing Associated Symptoms: reports: constipation Last BM: 4 days ago Dark Stools Present?: reports: none noticed Rectal Bleeding: reports: none Rectal Pain: reports: none Bruising or Bleeding Gums?: No Similar Symptoms Previously?: No Recently seen or treated by another doctor?: No Review of Systems - Adult - REVIEW OF SYSTEMS - ADULT Constitutional: reports: no symptoms reported, see HPI Eyes: reports: no symptoms reported, see HPI Ears, Nose, Mouth & Throat: reports: no symptoms reported, see HPI Cardiovascular: reports: no symptoms reported, see HPI Respiratory: reports: no symptoms reported, see HPI Gastrointestinal: reports: see HPI, abdominal pain, constipation Genitourinary: reports: no symptoms reported, see HPI Musculoskeletal: reports: no symptoms reported, see HPI Integumentary: reports: no symptoms reported, see HPI Neurological: reports: no symptoms reported, see HPI Psychiatric: reports: no symptoms reported, see HPI Endocrine: reports: no symptoms reported, see HPI Hematologic/Lymphatic: reports: no symptoms reported, see HPI Allergic/Immunologic: reports: no symptoms reported, see HPI All Other Systems: Reviewed and Negative Past History - Adult - PAST MEDICAL HISTORY-ADULT Review of Records: reports: Nursing Assessment Review, Medications Reviewed, Social history reviewed & non-contributory. Major Childhood Illnesses: reports: denies history Cardiovascular: reports: denies history Respiratory: reports: denies history Gastrointestinal: reports: denies history Obstetrical/Gynecological: reports: denies history Genitourinary: reports: denies history Musculoskeletal: reports: denies history Neurological: reports: denies history Psychiatric: reports: denies history Endocrine/Immune: reports: denies history Other Conditions: reports: denies history - PRIOR SURGERIES/PROCEDURES Surgical/Procedure History: reports: reviewed, not pertinent - IMMUNIZATION STATUS Childhood Immunizations: See Nurse Assessment Flu Vaccine: See Nurse Assessment - FAMILY HISTORY Family History: reviewed, not pertinent Physical Exam-General - PHYSICAL EXAM-ADULT Initial Vital Signs Reviewed: Yes - CONSTITUTIONAL General Appearance: appears well, alert, mild distress - EYES Eyes: PERRL/EOMI - HEAD, EARS, NOSE, MOUTH & THROAT HENMT: normocephalic/atraumatic, moist mucous membranes - NECK Neck: non-tender, full range of motion, supple, normal inspection - RESPIRATORY Respiratory: chest non-tender, lungs clear, normal breath sounds, no pleuratic chest pain, no respiratory distress, no accessory muscle use - CARDIOVASCULAR Cardiovascular: normal peripheral pulses, no edema, no gallop, no JVD, no murmur , tachycardia - GASTROINTESTINAL (ABDOMEN) Abdominal Exam: normal bowel sounds, no organomegaly, no pulsatile mass, distended, tenderness (Generalized tenderness with distension) - LYMPHATIC Lymphatic: no adenopathy - MUSCULOSKELETAL Back Exam: normal inspection, no CVA tenderness, no vertebral tenderness Extremity: normal range of motion, non-tender, normal gait, normal inspection, no pedal edema, no calf tenderness, normal capillary refill - SKIN Integumentary: normal color, normal turgor - NEUROLOGIC Neurologic: medical review specialist II-XII nml as tested, grossly normal, no motor/sensory deficits - PSYCHIATRIC Psych/Mental Status: normal mood/affect, normal thought content, normal thought process, oriented x 3 Progress - PLAN OF CARE/RESULTS Progress/Plan/Lab Results: Vital Signs - 8 hr 05/28/18 09:13 Temperature 97.5 F L Pulse Rate 104 H Respiratory Rate 18 Blood Pressure 117/80 O2 Sat by Pulse Oximetry 99 Orders Category Date Time Status CT ABD/PELVIS W/IV CONT ONLY [CT] Stat Exams 05/28/18 09:23 Ordered AMYLASE [CHEM] Stat Lab 05/28/18 10:36 Received CBC WITH ELECTRONIC DIFF [HEME] Stat Lab 05/28/18 10:44 Ordered COMPREHENSIVE METABOLIC PANEL [CHEM] Stat Lab 05/28/18 10:36 Received LIPASE [CHEM] Stat Lab 05/28/18 10:36 Received URINALYSIS [URINALYSIS] Stat Lab 05/28/18 09:23 Uncollected Hydromorphone [Dilaudid] Med 05/28/18 10:48 Discontinued 1 mg IV NOW ONE Ondansetron [Zofran] Med 05/28/18 10:48 Discontinued 4 mg IV NOW ONE Result Diagrams: 05/28/18 11:25 05/28/18 10:36 - CT/MRI 1 CT Study: Abdomen Impression: Abnormal, See EMR Report ( EXAM: CT ABD/PELVIS W/IV CONT ONLY INDICATION: abdo pain TECHNIQUE: This exam was performed using automated exposure control, adjustment of mA or kV according to patient size, and/or use of iterative reconstruction technique. COMPARISON: None. FINDINGS: There are numerous small masses at both lung bases indicating metastatic disease. There are bilateral large pleural effusions, largest on the left. There is a 2.1 cm medial chest wall nodule posteriorly on image one of series 3 that is assumed to be a metastatic lesion. There are numerous hepatic masses. The largest involves the anterior right hepatic lobe and medial left hepatic lobe measuring up to 10 x 9 cm. The spleen, pancreas, adrenal glands, kidneys, and urinary bladder are unremarkable. The omentum is markedly thickened and heterogeneous indicating peritoneal carcinomatosis. There is large volume malignant ascites. There is no evidence of bowel obstruction. No discrete focal bowel wall thickening is identified. There has been prior multilevel lumbar fusion. There is nothing to suggest bony metastatic disease locally. IMPRESSION: 1.Numerous small nodules in the lung bases indicating metastatic disease. 2.Small medial posterior chest wall nodule on the right that is assumed to be a metastatic lesion. 3.Bilateral large pleural effusions, largest on the left. 4.Numerous malignant hepatic lesions. 5.Peritoneal carcinomatosis with severe omental caking. 6.Large volume malignant ascites. Electronically signed by Lebron Hobbs 05/28/2018 2:44 PM 05/28/18 1444 Interpreting Physician: Lebron Hobbs MD Dictated Date/Time: 05/28/18 1436 cc: Masood Aburto MD; None,PCP) - CONSULTS/PCP/HOSPITALIST Notification #1 *Consult/PCP/Hospitalist*: Tima for Dr Flor Time Discussed: 15:06 Consult Disposition: Will see in ED, Admit Departure - Departure Date of Disposition Decision: 05/28/18 Time of Disposition Decision: 15:06 DIAGNOSIS: Ascites, Pleural effusion, Hyponatremia Disposition: ADMITTED INPATIENT 09 Certified Medical Emergency: Emergent Condition: Fair Referrals and Follow-Ups: None,PCP [Primary Care Provider] - - Critical Care Note This patient required my direct & personal management of CC.: No Attestation - Physician/ MUNIRA Attestation Patient care was provided by Advanced Practice Provider:: No The physician spent face to face time with patient:: Yes Advanced Practice Provider documentation review:: Supervising physician onsite and consulted in the evaluation and care of this patient. The physician did have a face to face encounter with the patient.
[2018-05-28 11:37] LABS: ESTIMATED GFR > 60
[2018-05-28 11:39] LABS: AGAP 17; ALB/GLOB RATIO 1.4; ALKALINE PHOSPHATASE 237 U/L (32-122); AMYLASE 5 U/L (20-200); BUN 31 mg/dL (8-22); CALCIUM 8.2 mg/dL (8.8-10.2); CHLORIDE 78 mmol/L (98-107); COSMO 257; CREATININE 1.2 mg/dL (0.7-1.2); GLUCOSE 110 mg/dL (70-104); GOT 22 U/L (10-34); GPT 34 U/L (10-44); LIPASE 8 U/L (13-60); POTASSIUM 3.5 mmol/L (3.5-5.1); SODIUM 124 mmol/L (136-145); TCO2 29 mmol/L (25-35); TOTAL BILIRUBIN 0.44 mg/dL (0.20-1.00); TOTAL PROTEIN 5.2 g/dL (6.3-8.3)
[2018-05-28 11:46] LABS: BASO# 0.01 X1000 (0.0-0.2); BASO% 0.1 % (0.0-0.8); EOS# 0.02 X1000 (0.0-0.7); EOS% 0.1 % (0.0-10.0); HEMOGLOBIN 10.6 g/dL (14.0-18.0); IMM GRAN# 0.16 X1000 (0.0-0.04); IMM GRAN% 1.1 % (0.0-0.5); LYMPH# 1.21 X1000 (1.2-3.4); LYMPH% 8.5 % (20.5-51.1); MCH 26.7 PG (27-31); MCHC 32.1 g/dL (33-37); MCV 83.1 FL (81-99); MONO# 0.96 X1000 (0.11-0.59); MONO% 6.7 % (1.7-9.3); MPV 9.9 FL (7.4-10.4); NEUT# 11.95 X1000 (1.4-6.5); NEUT% 83.5 % (42.2-75.2); PLT 188 X1000 (130-400); RBC 3.97 XMIL (4.7-6.1); RDW 16.3 % (11.5-14.5); WBC 14.31 X1000 (4.8-10.8)
[2018-05-28] MEDS ORDERED: NS 1,000 ML IV ONE (13:18)
--- NOTE | 2018-05-28 14:47 | Diag Imaging Result Doc PS360 ---
EXAM: CT ABD/PELVIS W/IV CONT ONLY INDICATION: abdo pain TECHNIQUE: This exam was performed using automated exposure control, adjustment of mA or kV according to patient size, and/or use of iterative reconstruction technique. COMPARISON: None. FINDINGS: There are numerous small masses at both lung bases indicating metastatic disease. There are bilateral large pleural effusions, largest on the left. There is a 2.1 cm medial chest wall nodule posteriorly on image one of series 3 that is assumed to be a metastatic lesion. There are numerous hepatic masses. The largest involves the anterior right hepatic lobe and medial left hepatic lobe measuring up to 10 x 9 cm. The spleen, pancreas, adrenal glands, kidneys, and urinary bladder are unremarkable. The omentum is markedly thickened and heterogeneous indicating peritoneal carcinomatosis. There is large volume malignant ascites. There is no evidence of bowel obstruction. No discrete focal bowel wall thickening is identified. There has been prior multilevel lumbar fusion. There is nothing to suggest bony metastatic disease locally. IMPRESSION: 1.Numerous small nodules in the lung bases indicating metastatic disease. 2.Small medial posterior chest wall nodule on the right that is assumed to be a metastatic lesion. 3.Bilateral large pleural effusions, largest on the left. 4.Numerous malignant hepatic lesions. 5.Peritoneal carcinomatosis with severe omental caking. 6.Large volume malignant ascites. Electronically signed by Lebron Hobbs 05/28/2018 2:44 PM
[2018-05-28 16:36] LABS: URINE SOURCE CATH
[2018-05-28 16:40] LABS: BILIRUBIN URINE NEGATIVE (NEGATIVE); BLOOD URINE NEGATIVE (NEGATIVE); COLOR YELLOW; GLUCOSE URINE NEGATIVE (NEGATIVE); KETONE URINE NEGATIVE (NEGATIVE); LEUKOCYTES URINE NEGATIVE (NEGATIVE); NITRITE URINE NEGATIVE (NEGATIVE); PH URINE 5.5; PROTEIN URINE 30 mg/dL (NEGATIVE); SP GRAVITY URINE 1.029; TURBIDITY URINE CLEAR (CLEAR); UR EPITHELIAL CELLS <10 /HPF (<10); URINE BACTERIA NEGATIVE /HPF; URINE RBC <10 /HPF (<10); URINE WBC <10 /HPF (<10); UROBILINOGEN URINE NORMAL (NORMAL)
[2018-05-28 17:10] LABS: INR 0.98; PROTIME 13.8 Seconds (11.0-16.0)
[2018-05-28 17:11] LABS: PTT 30.6 Seconds (22.3-41.8)
[2018-05-28] MEDS ORDERED: LASIX IV ONE (17:12)
[2018-05-28] MEDS ORDERED: DILAUDID IV PRN (17:26)
--- NOTE | 2018-05-28 17:39 | Diag Imaging Result Doc PS360 ---
EXAM: FOOT COMPLETE LEFT INDICATION: left foot ulcer TECHNIQUE: 3 views COMPARISON: None. FINDINGS: There is a hallux valgus deformity. No discrete bony erosion is identified to indicate osteomyelitis. There is no discrete fracture, dislocation, or significant intrinsic osseous lesion, otherwise. There is mild soft tissue edema around the foot. IMPRESSION: Soft tissue edema but no definite radiographic evidence of osteomyelitis. Electronically signed by Lebron Hobbs 05/28/2018 5:37 PM
--- NOTE | 2018-05-28 17:40 | Diag Imaging Result Doc PS360 ---
EXAM: CHEST-PORTABLE INDICATION: dyspnea TECHNIQUE: One view COMPARISON: 04/29/2018 FINDINGS: There has been interval removal of the right chest port. Inspiration is suboptimal. The lungs are grossly clear. There is no discrete pleural fluid collection or pneumothorax. The cardiomediastinal silhouette and central vasculature are grossly unremarkable. IMPRESSION: No evidence of acute pathology by plain radiograph. Electronically signed by Lebron Hobbs 05/28/2018 5:38 PM
--- NOTE | 2018-05-28 17:43 | Diag Imaging Result Doc PS360 ---
EXAM: CT HEAD W/O CONTRAST INDICATION: encephalopathy, stage 4 cancer TECHNIQUE: This exam was performed using automated exposure control, adjustment of mA or kV according to patient size, and/or use of iterative reconstruction technique. COMPARISON: None. FINDINGS: There is no definite acute infarct given the limited sensitivity of CT versus MRI. There is no discrete intracranial mass, mass effect, or intracranial hemorrhage. The surrounding soft tissues and bony structures are essentially unremarkable. IMPRESSION: No evidence of acute intracranial pathology. Electronically signed by Lebron Hobbs 05/28/2018 5:41 PM
[2018-05-28] MEDS ORDERED: ALBUMIN 25% IV ONE (18:09)
--- NOTE | 2018-05-28 18:11 | HISTORY AND PHYSICAL ---
ONCOLOGIST: Dr. Rossy Garrison. CHIEF COMPLAINT: Abdominal pain. HISTORY OF PRESENT ILLNESS: Mr. Schofield is an unfortunate 32-year-old male with a history of metastatic malignancy of unknown origin with involvement of the lungs, liver with heavy carcinomatosis He also has a history of recurrent malignant ascites and chronic pain from malignancy. He presents to our ER with abdominal pain and distention that has been going on off-and-on for multiple days. The patient is a poor historian, and there is no family at the bedside. He has been having abdominal pain and some nausea and vomiting, and has not been eating well. He has also had worsening distention of the abdomen, swelling of his legs, shortness of breath and overall deconditioning. In the ER he had an abdomen and pelvis CT done which showed numerous small nodules in the lung base, bilateral large pleural effusions (largest on the left), numerous malignant hepatic lesions, peritoneal carcinomatosis with severe omental caking, and large-volume ascites. Laboratory data shows a white count of 14,000. He is anemic and hyponatremic, along with hypoalbuminemic. We are going to admit him for further treatment of his abdominal pain and ascites. PAST MEDICAL HISTORY: 1. Severe metastatic malignancy of unknown origin, followed by Dr. Garrison. He did have FOLFOX therapy some time ago, but he had his port taken out due to infection and has not resumed chemotherapy. 2. Chronic pain. 3. Nicotine dependence. 4. Recurrent malignant ascites PAST SURGICAL HISTORY: 1. Port placement and port removal. 2. Testicular torsion with right orchiectomy in 2016. 3. Spinal fusion in 1998. 4. Liver biopsy in 2018. SOCIAL HISTORY: He smokes nicotine vapor. Denies illicit drug use. He does report taking more pain medication than prescribed. He is engaged. His fiancee is not currently at the bedside. Denies alcohol use. FAMILY HISTORY: Noncontributory. REVIEW OF SYSTEMS: Difficult to obtain. Limited review of systems was obtained and found to be negative with the exception of the HPI. ALLERGIES: No known drug allergies. HOME MEDICATIONS: At this time unknown. PHYSICAL EXAMINATION: VITAL SIGNS: Blood pressure is 117/80. Heart rate is 104, respiratory rate 18, O2 saturation 99% on room air. Temperature is 97.5. GENERAL: This is a chronically ill, cachectic, very disheveled-appearing 32-year-old male lying in the hospital bed, somewhat lethargic NEUROLOGIC: His speech is somewhat slurred. He does nod in and out at times in mid-speech. He is unable to answer orientation questions correctly but does follow commands without focal deficits. HEENT: Head is atraumatic and normocephalic. His pupils are 1 mm and sluggish to light response bilaterally. Oral mucosa is dry. Trachea is midline. There is no JVD. CHEST: Diminished at the bases but clear to auscultation. CARDIOVASCULAR: Regular rate and rhythm. S1 and S2 noted. No appreciable murmurs. GI: Severely distended and tender to palpation diffusely. Bowel sounds are hypoactive. Hepatosplenomegaly is also noted. EXTREMITIES: Have 1+ edema bilaterally. He has abrasions about the right leg with areas of dry blood and edema. His left leg does have about 1+ edema with diminished pulse as well. DIAGNOSTIC DATA: Abdomen and pelvis CT, please see HPI. WBCs 14.3, hemoglobin 10.6, hematocrit 33, platelet count 188. Sodium 124, potassium 3.5, chloride 78. CO2 is 29, anion gap 17, BUN 31, creatinine 1.2. Glucose 110, calcium 8.2. LFTs negative. Alkaline phosphatase 237. Albumin 3. UA is negative. ASSESSMENT/PLAN: 1. Large-volume ascites and bilateral pleural effusions: These are very likely malignant in nature and recurrent. We will obtain coagulation studies and plan for therapeutic paracentesis and thoracentesis in the morning. We are starting broad-spectrum antibiotics as he does have a mildly elevated white count and abdominal pain with ascites. Will start Zyvox and Zosyn for broad-spectrum coverage. 2. Hyponatremia: Likely syndrome of inappropriate antidiuretic hormone secretion secondary to severe malignancy. Will give him a dose of Lasix now with some albumin and check urine studies and serum osmolality and reevaluate in the morning. 3. Bilateral lower extremity edema with abrasions of various sizes and stages of healing: Will check ultrasounds of the legs to rule out deep venous thrombosis, checking a foot x-ray on the left to rule out any osseous abnormality and starting antibiotics. Will consult Wound Care. 4. Anemia: Checking iron studies. 5. Severe protein calorie malnutrition: The patient appears very malnourished. Will need additional nutrition. Will try to start him on some Ensure. If not, he may need some IV nutrition. 6. Metastatic malignancy of unknown origin: We have consulted Dr. Garrison. Will continue with pain medication judiciously and consult palliative care as the patient has severe disease. 7. Deep venous thrombosis prophylaxis is contraindicated right now, as he has wounds on both legs, and he has liver disease and anemia. 8. Further recommendations to follow. Dictated by KUMAR Laws for Pato Salas MD cc: KUMAR Laws MD MTDD
[2018-05-28 18:14] LABS: UR AMPHETAMINES QUAL PRESUMPTIVE POSITIVE (NONE DETECT); UR BARBITUATES QUAL NONE DETECTED (NONE DETECT); UR BENZODIAZEPIN QUAL NONE DETECTED (NONE DETECT); UR CANNABINOIDS QUAL PRESUMPTIVE POSITIVE (NONE DETECT); UR COCAINE QUAL NONE DETECTED (NONE DETECT); UR CREAT RANDOM 125.1 mg/dL (14-26); UR METHADONE QUAL NONE DETECTED (NONE DETECT); UR OPIATES QUAL NONE DETECTED (NONE DETECT); UR OXYCODONE QUAL PRESUMPTIVE POSITIVE (NONE DETECT); UR PCP QUAL NONE DETECTED (NONE DETECT); UR SODIUM < 10 mmoll
[2018-05-28] MEDS: ZOSYN 3.375 GM in NS 50 ML IV SCH ×2 (18:20→23:14)
[2018-05-28 18:23] LABS: ALLEN TEST NO; BE 9.1 mmoll (-3.0-3.0); BLOOD TYPE ARTERIAL; METHB 0.3 % (0.0-1.5); O2(CT) 13.9 mL/dL (15.0-23.0); O2HB 96.5 % (95.0-99.0); PCO2(98.6) 40 mmHg (35-45); PO2(98.6) 80 mmHg (60-100); SAMPLE BLOOD; SAO2 99.7 % (95.0-100.0); THB 10.2 g/dL (11.5-17.4); pH(98.6) 7.52 (7.35-7.45)
[2018-05-28 18:24] LABS: MODALITY ROOM AIR
--- NOTE | 2018-05-28 18:32 | HISTORY AND PHYSICAL ---
HISTORY AND PHYSICAL ADDENDUM: The patient is seen and examined by me [id number]. All the laboratory, images and vital signs were reviewed. The patient at this moment is a little bit lethargic, but it seems to be better compared with a few hours ago. Actually, he is waking up and is hungry. He wants to eat an ice cream and cold water, which I am okay with that as long as he is awake and sitting up. This patient has a metastatic carcinoma, unknown primary. Think there is suspected to be an upper gastrointestinal primary and he has been on chemotherapy before. Recently, he had a port infection, as well. Today, also, he presented with lower extremity swelling, but some redness mostly on the right side and some a wounds bilaterally, in different stages. For me, mostly the right side looked infected. I will place this patient on antibiotics. He has anasarca. He is abdomen and pelvis CT scan showed numerous small nodules in the lung bases indicating metastatic disease. A small medial posterior chest wall nodule on the right that is assumed to be a metastatic lesion, as well. Bilateral large pleural effusions which is largest on the left side. Numerous malignant hepatic lesions. Peritoneal carcinomatosis with severe omental caking. Large volume malignant ascites. ASSESSMENT AND PLAN: This patient will be placed on antibiotics. I will put him on a diet right now, seeing as this patient is waking up and demanding food. His prognosis is extremely poor. We have requested an evaluation by Hematology/Oncology Department. I will ask for a PT, PTT, INR and if this is okay, probably tomorrow morning I will get a paracentesis ans thoracentesis done by Interventional Radiology and also probably a thoracentesis as well, if the patient agrees with that. I agree with the rest of the nurse practitioner's assessment and plan. cc: Pato Salas MD MTDNicolas
[2018-05-28 19:13] LABS: IRON SATURATION 24 %; TIBC 168 ug/dL; TOTAL IRON 40 ug/dL (53-167); UNBOUND IRON 128 ug/dL (112-346)
[2018-05-28] MEDS: ZYVOX 600 MG/D5W 600 MG/300 ML IVPB IV SCH (19:35)
[2018-05-28 19:41] LABS: FERRITIN 1536 ng/mL (30-400)
[2018-05-28] MEDS ORDERED: NS 500 ML ONE (19:44)
[2018-05-28] MEDS: DUONEB (A & A) INH SCH ×2 (20:38→23:21)
[2018-05-28] MEDS: ZOFRAN IV PRN (23:14)
[2018-05-28] MEDS: DILAUDID IV PRN (23:14)
[2018-05-29] MEDS: DUONEB (A & A) INH SCH ×6 (03:38→23:23)
[2018-05-29] MEDS: ZOFRAN IV PRN ×4 (04:09→21:02)
[2018-05-29] MEDS: DILAUDID IV PRN ×5 (04:09→20:55)
[2018-05-29] MEDS: ZOSYN 3.375 GM in NS 50 ML IV SCH ×4 (05:01→21:03)
[2018-05-29 06:45] LABS: BASO# 0.01 X1000 (0.0-0.2); BASO% 0.1 % (0.0-0.8); EOS# 0.01 X1000 (0.0-0.7); EOS% 0.1 % (0.0-10.0); HEMATOCRIT 34.8 % (42.0-52.0); HEMOGLOBIN 11.2 g/dL (14.0-18.0); IMM GRAN# 0.21 X1000 (0.0-0.04); IMM GRAN% 1.4 % (0.0-0.5); LYMPH# 1.03 X1000 (1.2-3.4); LYMPH% 6.9 % (20.5-51.1); MCH 26.7 PG (27-31); MCHC 32.2 g/dL (33-37); MCV 82.9 FL (81-99); MONO# 0.99 X1000 (0.11-0.59); MONO% 6.7 % (1.7-9.3); MPV 10.3 FL (7.4-10.4); NEUT# 12.59 X1000 (1.4-6.5); NEUT% 84.8 % (42.2-75.2); PLT 157 X1000 (130-400); RDW 16.5 % (11.5-14.5); WBC 14.84 X1000 (4.8-10.8)
[2018-05-29 07:06] LABS: ESTIMATED GFR > 60
[2018-05-29 07:10] LABS: AGAP 17; ALB/GLOB RATIO 0.9; ALBUMIN 2.8 g/dL (3.5-5.0); ALKALINE PHOSPHATASE 239 U/L (32-122); BUN 32 mg/dL (8-22); CALCIUM 8.4 mg/dL (8.8-10.2); CHLORIDE 80 mmol/L (98-107); COSMO 256; CREATININE 1.2 mg/dL (0.7-1.2); GLUCOSE 92 mg/dL (70-104); GOT 21 U/L (10-34); GPT 35 U/L (10-44); MAGNESIUM 1.8 mg/dL (1.5-2.7); POTASSIUM 3.5 mmol/L (3.5-5.1); SODIUM 124 mmol/L (136-145); TCO2 27 mmol/L (25-35); TOTAL BILIRUBIN 0.54 mg/dL (0.20-1.00); TOTAL PROTEIN 5.8 g/dL (6.3-8.3)
[2018-05-29] MEDS: ZYVOX 600 MG/D5W 600 MG/300 ML IVPB IV SCH ×2 (07:24→18:55)
--- NOTE | 2018-05-29 09:30 | Diag Imaging Result Doc PS360 ---
EXAM: US ABD PARACENTESIS W S/I HISTORY: Ascitis TECHNIQUE: Ultrasound-guided paracentesis COMPARISON: None. FINDINGS: Prior to the procedure I discussed the risk and benefits with the patient. Primary risks include bleeding, infection, bowel injury, and liver injury. Questions were answered. Consent was given. The permit was signed. Ultrasound was used to localize the largest fluid collection in the right abdomen. This area was cleaned and draped in the normal fashion. Lidocaine was used as a local anesthetic. Needle and catheter were advanced into the fluid collection on the first attempt without difficulty. The needle was withdrawn. The catheter was hooked to suction. Approximately 2.5 L of fluid were withdrawn without difficulty. The catheter was then withdrawn. No immediate postprocedural complications. IMPRESSION: Successful ultrasound-guided paracentesis. Electronically signed by Reinaldo Isabel 05/29/2018 9:28 AM
[2018-05-29 11:03] LABS: ALBUMIN BODY FLUID 1.9 g/dL; LDH BODY FLUID 654 U/L
[2018-05-29 11:36] LABS: BODY FLUID SOURCE PERITONEAL FLUID; MONOS 86 %; POLYS 14 %; WBC BF 638 /cumm
[2018-05-29] MEDS: BACTROBAN OINTMENT TOP SCH ×2 (12:55→21:30)
--- NOTE | 2018-05-29 14:33 | PROGRESS NOTE ---
DATE: 05/29/2018 SUBJECTIVE: This patient seems to be doing a little bit better today. We did a paracenteses and. 2.5 L has been removed. I sent it to the laboratory and for cytology as well. Hematology oncology on board, and actually they started talking about hospice with this patient. I consulted Palliative Care as well. For now, we will continue with the same management. OBJECTIVE: Vital Signs: Temperature 98.7 degrees, pulse 106, respiratory rate 20, blood pressure 95/58, and oxygen saturation 100% on room air. HEENT: Head normocephalic. No trauma. PERRLA. Neck: Supple. No JVD. No masses. Central trachea. Chest: Decreased breath sounds at the bases with some crackles. Cardiovascular: RRR. Abdomen: Soft. Distended. Positive bowel sounds but hypoactive. Hepatosplenomegaly noted. Extremities: 1 to 2+ extremity edema with aberration mostly on the right leg. Dry blood and edema. His left leg is less swollen. Neurological: This patient is alert, but somnolent. He is answering most of my questions. He is more oriented than yesterday. He moves all 4 extremities spontaneously, but he has severe generalized weakness and pain. LABORATORY: WBC 14.8, hemoglobin 11.2, hematocrit 34.8, and platelets 157,000. Sodium 124, potassium 3.5, chloride 80, bicarbonate 27, BUN 32, creatinine 1.2, glucose 92, calcium 8.4, magnesium 1.8. AST 21, ALT 35, alkaline phosphatase 239. Albumin 2.8. ASSESSMENT AND PLAN: 1. Large volume ascites and bilateral pleural effusion status post paracenteses. This patient refused thoracentesis. 2.5 L has been removed from his belly. We will continue with the same management. Continue with antibiotics. 2. Hyponatremia. 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 We will continue with the same management. 3. Bilateral lower extremity edema and possible infected ulcers/abrasions. We will continue with antibiotics. Wound Care on board. 4. Anemia, aware. 5. Severe protein calorie malnutrition. Continue with the same diet. 6. Metastatic malignancy of unknown origin followed by Dr. Garrison. 7. Deep vein thrombosis prophylaxis, contraindicated right now due to paracentesis. He has wounds on his legs, liver disease and anemia. 8. Overall, this patient has poor prognosis. The conversation for hospice has been started. Palliative care has been consulted. cc: Pato Salas MD
--- NOTE | 2018-05-29 21:18 | Extremity Venous Study ---
PROCEDURE NAME: Venous U/S Bilateral Legs - 05/29/2018 LOWER EXTREMITY VENOUS ULTRASOUND: SENIOR DEVOPS ENGINEER: Sonu. REQUESTING PHYSICIAN: Dr. Flor. INDICATION: Swelling. FINDINGS: Deep superficial veins bilateral lower extremities visualized along the course. All veins appeared compressible forward flow and no evidence intraluminal thrombus. SUMMARY: No deep or superficial venous thrombosis in bilateral lower extremities. cc: MD Issac Vargas CRNP
[2018-05-30] MEDS: DILAUDID IV PRN ×6 (00:32→22:51)
[2018-05-30] MEDS: ZOFRAN IV PRN ×7 (00:32→22:51)
[2018-05-30] MEDS: DUONEB (A & A) INH SCH ×5 (03:17→21:23)
[2018-05-30] MEDS: ZOSYN 3.375 GM in NS 50 ML IV SCH ×4 (04:04→22:52)
[2018-05-30] MEDS: ZYVOX 600 MG/D5W 600 MG/300 ML IVPB IV SCH ×2 (04:43→18:13)
--- NOTE | 2018-05-30 09:40 | PROGRESS NOTE ---
DATE: 05/30/2018 SUBJECTIVE: This patient has been complaining of pain. His blood pressure has been borderline low, sometimes in the 90s, but mostly in the 100s and 110s. I had a conversation with this patient about his resuscitation status and pain management. He told me that he is tired to be in pain, and he agreed to change his resuscitation status to DNR, he wants to be more comfortable and asked me to put his pain medication and nausea medication every 3 hours, which I did. I evaluated the patient at the bedside and I had this conversation with him, his nurse at the bedside with me as well. OBJECTIVE: Vital signs: Temperature 97.4 degrees, pulse 109, respiratory rate 16, blood pressure 103/67, oxygen saturation 100% on room air. HEENT: Head normocephalic. No trauma. PERRLA. Neck: Supple. No JVD. No masses. Central trachea. Chest: Decreased breath sounds at the bases with some crackles. Cardiovascular: RRR, tachycardic. Abdomen: Soft. Distended, I feel multiple masses, mostly at the upper part of the abdomen, right upper and left upper quadrant, is painful to deep palpation. Extremities: His right lower extremity is swollen with signs of redness and multiple wounds, he has been oozing a clear liquid, it looks infected, left lower extremity edema as well, 2-3+, with an ulcerative lesion at the dorsal aspect of the left foot, continue with the same management. Neurological: At this moment, this patient is alert and oriented x3. No focal neurological deficits but generalized weakness. LABORATORY DATA: Pending lab work at this moment. Magnesium level is 1.7. ASSESSMENT AND PLAN: 1. Large volume ascites and bilateral pleural effusion status post paracentesis, the patient refused thoracentesis, this is likely malignant ascites, 2.5 L of fluid has been removed. Continue with same management, continue with antibiotics. 2. Hyponatremia. Likely this patient has syndrome of inappropriate antidiuretic hormone hypersecretion due to malignancy. Continue with same treatment. 3. Bilateral lower extremity edema and cellulitis on the right leg, ulcer on his left foot. Continue with antibiotics. Wound Care on board. 4. Anemia. Aware. 5. Severe protein calorie malnutrition. Continue with the same diet. 6. Metastatic malignancy of unknown origin. Followed by Dr. Garrison. 7. Deep vein thrombosis prophylaxis. I will continue with just monitoring this patient. He has wounds on his legs, liver disease and anemia, the plan is to get hospice this coming Friday, he agreed to go with hospice. 8. Disposition. This patient has a really poor prognosis due to his metastatic disease, he has severe protein calorie malnutrition as well. Hospice will re-evaluate this patient on Friday again and we will try to set up everything as soon as we can so he can be discharged home with the family. 9. This patient is DNR level 1. cc: Pato Salas MD
[2018-05-30] MEDS: BACTROBAN OINTMENT TOP SCH ×2 (10:15→21:49)
[2018-05-31] MEDS: DUONEB (A & A) INH SCH ×5 (00:12→23:28)
[2018-05-31] MEDS: ZOFRAN IV PRN ×6 (03:48→22:01)
[2018-05-31] MEDS: DILAUDID IV PRN ×6 (03:48→22:01)
[2018-05-31] MEDS: ZOSYN 3.375 GM in NS 50 ML IV SCH ×3 (05:19→16:26)
[2018-05-31] MEDS: ZYVOX 600 MG/D5W 600 MG/300 ML IVPB IV SCH ×2 (05:58→18:25)
[2018-05-31] MEDS ORDERED: ALBUMIN 25% IV ONE (07:56)
[2018-05-31 07:58] LABS: BASO# 0.01 X1000 (0.0-0.2); BASO% 0.1 % (0.0-0.8); HEMOGLOBIN 11.7 g/dL (14.0-18.0); IMM GRAN# 0.19 X1000 (0.0-0.04); LYMPH# 1.15 X1000 (1.2-3.4); LYMPH% 6.1 % (20.5-51.1); MCH 26.9 PG (27-31); MCHC 32.5 g/dL (33-37); MCV 82.8 FL (81-99); MONO# 0.86 X1000 (0.11-0.59); MONO% 4.5 % (1.7-9.3); MPV 10.8 FL (7.4-10.4); NEUT# 16.77 X1000 (1.4-6.5); NEUT% 88.3 % (42.2-75.2); PLT 136 X1000 (130-400); RBC 4.35 XMIL (4.7-6.1); WBC 18.98 X1000 (4.8-10.8)
[2018-05-31 08:16] LABS: ALB/GLOB RATIO 0.9; ALBUMIN 2.7 g/dL (3.5-5.0); POTASSIUM 3.1 mmol/L (3.5-5.1); TOTAL BILIRUBIN 0.53 mg/dL (0.20-1.00); TOTAL PROTEIN 5.8 g/dL (6.3-8.3)
[2018-05-31] MEDS ORDERED: NS 250 ML IV ONE (08:27)
[2018-05-31 08:32] LABS: BANDS 2 % (0-1); LYMPHS 6 % (21-51); MONO 4 % (1-9); SEGS 88 % (42-75)
--- NOTE | 2018-05-31 10:26 | PROGRESS NOTE ---
DATE: 05/31/2018 SUBJECTIVE: This patient has been having episodes of some hypotension, but as per the patient, he wants to be comfortable. He does not want to be in pain. His blood pressure dropped to 78/53 this morning and then we will rechecked it and it was 104/76. I have requested an albumin IV. We will monitor this patient. Tomorrow he will be evaluated by hospice care and probably he will be discharged home with hospice. OBJECTIVE: Vital Signs: Temperature 97.4 degrees, pulse 101, respiratory rate 10, blood pressure 104/76, oxygen saturation 95% on room air. HEENT: Head normocephalic. No trauma. PERRLA. Neck: Supple. No JVD. No masses. Central trachea. Chest: Decreased breath sounds at the bases with some crackles. Cardiovascular: Regular rhythm and rate. Tachycardic. Abdomen: Soft, distended with multiple masses, mostly at the level of the upper abdomen. Right and left upper quadrant painful to palpation. Extremities: Right lower extremity swollen with sign of redness and multiple wounds. The wound has been oozing a little bit of clear liquid, it looks infected, but is getting better. Left lower extremity edema as well, 2-3+ with an ulcerative lesion at the dorsal aspect of the left foot. Continue with same management. Neurological: This patient is alert and oriented x3. No focal deficits. LABORATORY: WBC 18.9, hemoglobin 11.7, hematocrit 36, platelets 136,000. Sodium 125, potassium 3.1, chloride 78, bicarbonate 27, BUN 36, creatinine 2, glucose 112, calcium 8. AST 18, ALT 37, alkaline phosphatase 270. Albumin 2.7. ASSESSMENT AND PLAN: 1. Large volume ascites and bilateral pleural effusion, status post paracenteses. The patient refused thoracentesis. This is likely malignant ascites. 2.5 L of fluid has been removed. Continue with same management. Continue antibiotics. 2. Hyponatremia. 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 Continue with same treatment. 3. Bilateral lower extremity edema and cellulitis on the right leg. Continue with antibiotics. 4. Acute kidney injury probably secondary to hypertension. He will receive a dose of normal saline and albumin. We will try to keep the systolic blood pressure over 100. 5. Severe protein calorie malnutrition. Continue with the same diet. 6. Metastatic malignancy of unknown origin, followed by Dr. Garrison. 7. Deep vein thrombosis prophylaxis. I will continue with just monitoring this patient. He has some wounds on his legs, liver disease and anemia. The plan is to get hospice this coming Friday and he agreed to go home with hospice. 8. This patient is Do Not Resuscitate Level 1. 9. Overall, his prognosis is extremely poor due to his metastatic disease. I talked to the patient and I told him that he has been having hypotension and this is probably related to his current condition and pain medication. He states that he wants to be comfortable. I will try to keep the blood pressure a little bit more elevated. He has an acute kidney injury, which is likely secondary to low blood pressure. Again, we will try to discharge this patient home with hospice. cc: Pato Salas MD
[2018-05-31] MEDS: BACTROBAN OINTMENT TOP SCH ×2 (16:04→22:25)
[2018-05-31] MEDS ORDERED: CALMOSEPTINE OINTMENT TOP PRN (17:15)
[2018-06-01] MEDS: ZOSYN 3.375 GM in NS 50 ML IV SCH ×4 (00:40→18:18)
[2018-06-01] MEDS: VANCOCIN PO SCH ×4 (00:40→18:19)
[2018-06-01] MEDS: DILAUDID IV PRN ×7 (01:00→20:46)
[2018-06-01] MEDS: ZOFRAN IV PRN ×7 (01:00→20:46)
[2018-06-01] MEDS: DUONEB (A & A) INH SCH ×7 (03:51→22:34)
[2018-06-01 07:35] LABS: BASO# 0.01 X1000 (0.0-0.2); HEMATOCRIT 34.3 % (42.0-52.0); HEMOGLOBIN 11.3 g/dL (14.0-18.0); IMM GRAN# 0.18 X1000 (0.0-0.04); IMM GRAN% 0.7 % (0.0-0.5); LYMPH# 1.33 X1000 (1.2-3.4); LYMPH% 5.5 % (20.5-51.1); MCH 27.1 PG (27-31); MCHC 32.9 g/dL (33-37); MCV 82.3 FL (81-99); MONO# 1.05 X1000 (0.11-0.59); MONO% 4.4 % (1.7-9.3); MPV 10.6 FL (7.4-10.4); NEUT# 21.56 X1000 (1.4-6.5); NEUT% 89.4 % (42.2-75.2); PLT 164 X1000 (130-400); RBC 4.17 XMIL (4.7-6.1); RDW 16.7 % (11.5-14.5); WBC 24.13 X1000 (4.8-10.8)
[2018-06-01 08:13] LABS: ALBUMIN 2.9 g/dL (3.5-5.0); CALCIUM 8.1 mg/dL (8.8-10.2); CREATININE 2.2 mg/dL (0.7-1.2); POTASSIUM 3.1 mmol/L (3.5-5.1); TOTAL BILIRUBIN 0.57 mg/dL (0.20-1.00); TOTAL PROTEIN 5.7 g/dL (6.3-8.3)
[2018-06-01 08:22] LABS: BANDS 8 % (0-1); LYMPHS 6 % (21-51); MONO 2 % (1-9); SEGS 84 % (42-75)
[2018-06-01] MEDS: ZYVOX 600 MG/D5W 600 MG/300 ML IVPB IV SCH ×2 (08:41→20:37)
[2018-06-01] MEDS ORDERED: ALBUMIN 25% IV ONE (08:48)
[2018-06-01] MEDS ORDERED: NS 250 ML IV SCH (09:00)
[2018-06-01] MEDS: BACTROBAN OINTMENT TOP SCH ×2 (09:20→20:47)
--- NOTE | 2018-06-01 09:35 | PROGRESS NOTE ---
DATE: 06/01/2018 SUBJECTIVE: This patient had some episodes of hypotension mostly yesterday and the day before yesterday. He had some acute kidney injury and he is not eating a whole lot. I will give him an extra dose of albumin and 250 mL of fluid. BUN improved a little bit compared with yesterday, but creatinine increased from 2 to 2.2. He is also having some diarrhea due to C. Difficile colitis. His white blood cells are trending up even though he has been on antibiotics. I have requested an evaluation by Infectious Disease Department. Even though hospice care has been consulted, he has been changing his mind on and off about his DNR status and treatment. OBJECTIVE: Vital Signs: Temperature 97.9 degrees, pulse 106, respiratory rate 14, blood pressure 111/64, oxygen saturation 95% on room air. HEENT: Head normocephalic. No trauma. PERRLA. Neck: Supple. No JVD. No masses. Central trachea. Chest: Decreased breath sounds at the bases with some crackles. Cardiovascular: Regular rhythm and rate, tachycardic. Abdomen: Soft. Distended with multiple masses mostly at the level of the upper abdomen, right and left quadrant, painful to palpation. Extremities: Right lower extremity swollen with signs of redness and multiple wounds, erythematous. The wounds were oozing a little bit yesterday, but not that much today. They look infected though, left lower extremity edema as well 2-3+ with an ulcerative lesion at the level of the dorsal aspect of the left foot. Continue with the same management. Neurological: This patient is sleepy, but arousable. He is able to say his name, but I believe he just received the pain medication and he has fallen asleep right away. LABORATORY: WBC 24.1, hemoglobin 11.3, hematocrit 34.3, platelets 164,000. Sodium 124, potassium 3.1, chloride 76, bicarbonate 29, BUN 35, creatinine 2.2, glucose 96, calcium 8.1, magnesium 1.9, albumin 2.9. ASSESSMENT AND PLAN: 1. Large volume ascites and bilateral pleural effusion status post paracentesis, the patient refused thoracentesis. This is likely malignant ascites. 2.5 L of fluid has been removed. Continue with the same management. Continue with antibiotics. 2. Hyponatremia, likely secondary to SIADH due to malignancy. Continue with the same treatment. 3. Bilateral lower extremity edema and cellulitis on the right side. Continue with antibiotics. Infectious Disease Department has been consulted. 4. Acute kidney injury, likely secondary to hypotension. He received already yesterday some normal saline and albumin. I will repeat it today since he is having now diarrhea. 5. Difficile colitis. I have placed this patient on vancomycin 125 mg every 6 hours, and I have consulted Infectious Disease Department. 6. Leukocytosis. It is trending up. We will continue to monitor. Infectious Disease Department has been consulted. Likely this is multifactorial due to the infection, inflammatory process and malignancy. 7. Metastatic malignancy of unknown origin, followed by Dr. Rossy Garrison. 8. Deep vein thrombosis prophylaxis. I will continue with the same management for now. This patient has some wounds, liver disease, anemia. The plan is to get hospice for this patient and I believe they will reassess this patient today to take him home with hospice, but this patient has been changing his mind on and off. So for now, we will continue treating this patient. 9. This patient is Do Not Resuscitate Level 1. 10. Overall, his prognosis is extremely poor due to his metastatic disease and general condition. I talked to the patient and I told him that he has been having some hypotension and probably at some point it is related to pain medication. He states that he wants to be comfortable and he wants to be without pain. He wants to be Do Not Resuscitate. I will honor his wishes. Hospice care has been consulted, they will re-evaluate this patient today to make a decision. cc: Pato Salas MD
--- NOTE | 2018-06-01 10:35 | INFECTIOUS DISEASE CONSULT REP ---
DATE: 06/01/2018 CONCLUSION: 1. The patient has Clostridium difficile diarrhea. It appears that the treatment with vancomycin is getting the diarrhea under control. 2. The patient also has a right leg cellulitis. 3. The patient also has oral candidiasis. 4.The patient may have peritonitis 5. The WBC is increasing possibly due to C. diff diarrhea since treatment for it only started yesterday. Will repeat the CBC tomorrow. RECOMMENDATIONS: I agree with treating the patient with p.o. vancomycin and I also agree with treating the patient with Zyvox and Zosyn for the patient's leg cellulitis and also this will help clear up peritonitis. I should mention that possibly just having a malignancy that involves the peritoneum may also cause an elevated white blood cell count. I have ordered nystatin swish and swallow for the patient's oral candidiasis. DISCUSSION: The patient is delirious currently and unable to provide a history. No family members present. According to the data in the computer, the patient has severe metastatic malignancy of unknown origin. He has chronic pain. He also smokes cigarettes. PAST HISTORY: Positive for placement of a Port-A-Cath and then removal of it, he had a testicular torsion with a right orchiectomy, he has had a spinal fusion, and he has had a liver biopsy. SOCIAL HISTORY: The patient smokes nicotine vapor. He denies illicit drug use. He does admit to taking more pain medicine than prescribed. He is engaged. He denied alcohol use. MEDICATIONS TAKEN AT HOME: Include Zyrtec, Dilaudid, Phenergan, and spironolactone. ALLERGIES: The patient has no drug allergies. DIAGNOSTIC STUDIES: Laboratory studies thus far show a CBC with a white count of 24,130, hemoglobin 11.3, and platelet count 164,000. Creatinine is 2.2, GFR is 35. Alkaline phosphatase is 277. The patient's ascites had 638 white blood cells, of which 86% were mononuclear. The patient's Clostridium difficile antigen and toxin are positive. Blood cultures are negative. PHYSICAL EXAMINATION: Vital Signs: Temperature is 97.9 degrees, pulse 106, respirations 14, blood pressure 111/64. Height/weight: The patient is 5 feet 10 inches tall, and he weighs 175 pounds. General: This is a somewhat delirious and chronically ill-appearing young male. He did not appear to be in acute distress. Head, eyes, ears, nose, and throat: No drainage noted from the nose or ears. The patient did have white coating on his tongue. His sinuses were not tender. Neck: No stiffness. Lungs: Clear to auscultation. Cardiovascular: Heart rate is regular. Abdomen: Distended and firm. On the right side, there was an area that was very hard. Neurologic: The patient appeared to be in a delirium. He was unable to answer my questions. He did, however, move his arms when I requested him to do so. Integument: No rash noted. Extremities: The patient's right leg is edematous, and it has wounds around the whole lower part of the leg. The underlying tissue is pinkish in color. There is not any pus, and I did not see any necrotic tissue. I did take a culture from one of the wounds on his leg. Thank you for the consult. cc: Edgar Fagan MD [facility]TD[facility]
[2018-06-01] MEDS ORDERED: MYCAMINE 100 MG in NS 100 ML IV SCH (11:00)
[2018-06-01] MEDS: MYCOSTATIN SUSP PO SCH ×3 (12:09→20:38)
--- NOTE | 2018-06-01 16:35 | HEMO/ONC CONSULTATION ---
DATE: 05/29/2018 Consultation requested by hospitalist service. Consultation for metastatic cancer, patient known. HISTORY OF PRESENT ILLNESS: Mr. 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 The patient has had about 3 cycles of treatment. He has been in and out of the hospital as well as has had some compliance issues with making it to his appointments. He does have transportation issues which we have helped in try to arrange a ride for him to get to the clinic. He has also had issues with infection including port infection, cellulitis of his leg. He also had a time when his catheter was damaged. It appears that he most recently has come to the hospital for abdominal pain with distention and has subsequently been admitted to the hospital. During his workup he had a CT done which showed numerous small nodules in his lung bases as well as bilateral large pleural effusions, numerous malignant hepatic lesions, peritoneal carcinomatosis with severe omental caking and large volume ascites. He has now been admitted for further evaluation and treatment. PAST MEDICAL HISTORY: 1. 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 He is status post 3 cycles of FOLFOX. His last treatment was actually on 04/15/2018. 2. Nicotine dependence. 3. Recurrent malignant ascites related to his cancer of unknown primary. 4. Chronic pain. PAST SURGICAL HISTORY: 1. Port placement and removal. He did have to have the port removed due to port infection. 2. Testicular detorsion with right orchectomy in 2016. Spinal fusion in 1998 and a liver biopsy. SOCIAL HISTORY: Patient uses nicotine. He denies any illicit drug use. The patient is engaged and reports that he actually recently had a son. He denies any alcohol use. He also has a mother who he is in contact with. Of note, his mother nor his fiancee have never came to any of his appointments at our clinic. FAMILY HISTORY: Negative for any cancer. He has a mother who is alive at age 54 is healthy and a sister alive at the age of 29 with mental illness but no other health issues. REVIEW OF SYSTEMS: Twelve point review of systems has been completed negative except for expressed in HPI. PHYSICAL EXAM: Vital Signs: Temperature 98.7 degrees, heart rate 106, respirations 20, blood pressure 95/58, O2 saturation 100% on room air. General: This is a thin chronically ill and acutely ill appearing male who is rather lethargic lying in his hospital bed. There is no family at bedside. HEENT: Head normocephalic, atraumatic. Pupils equal, round, reactive. He does have glasses in place. Oral mucosa appears to be dry. Gross auditory acuity is intact. Trachea appears to be midline. Cardiovascular: Tachycardia noted, regular rhythm. Respiratory: Chest is essentially clear to auscultation anteriorly bilaterally. Gastrointestinal: Abdomen is distended with ascites. Positive bowel sounds noted. Musculoskeletal: No bony abnormalities. Extremities: Patient has bilateral extremity edema noted. Neurologic: Patient is arousable but hard to keep awake. He is oriented when he is awake. LABS AND STUDIES: White blood cells 14.84, hemoglobin 11.2, hematocrit 34.8, platelet count 157,000, sodium 124, potassium 3.5, chloride 80, CO2 is 27, BUN 32, creatinine 1.2, glucose 92. CT scan as per above. ASSESSMENT AND PLAN: 1. Metastatic carcinoma of unknown primary. Believed to be of upper gastrointestinal origin. He is status post 3 cycles of FOLFOX chemotherapy treatment. The patient has been unable to complete any further treatment due to recurrent infections as well as being in and out the hospital with abdominal pain and other complications. He has also had transportation issues as well as some noncompliance. At this time we would recommend that the patient proceed with hospice. Tried to discuss that with the patient today however he is rather lethargic. We will obtain next of kin contact information for the patient and discuss with his mother as soon as possible. Will also go ahead and consult palliative care in the meantime. We have discussed hospice previously and the patient has been amendable to it. 2. Hyponatremia. Is metastatic malignancy. Continue per the primary team. It is likely syndrome of inappropriate antidiuretic hormone secretion. 3. Bilateral lower extremity edema. Continue antibiotics. It looks like they have consulted Wound Care. 4. Severe protein malnutrition. He will start on Ensure. IV nutrition. 5. Large volume ascites and bilateral pleural effusions. Looks like they went ahead and sent for paracentesis. He previously did have Aspira catheter in place but seems to not be functioning and/or removed. We want thank you for consulting us on Mr. Schofield. Will continue follow along adjust our treatment plan per his hospital course. Dictated by DEAN Mcdonald for Rossy Garrison MD cc: Rossy Garrison MD I have seen and examined the patient and the above note reflects my history, physical, assessment and plan. Rossy Garrison MD [facility]
[2018-06-01] MEDS ORDERED: KLOR-CON PO ONE (18:24)
[2018-06-02] MEDS: ZOFRAN IV PRN ×7 (00:25→20:55)
[2018-06-02] MEDS: DILAUDID IV PRN ×7 (00:25→20:55)
[2018-06-02] MEDS: VANCOCIN PO SCH ×5 (00:25→20:54)
[2018-06-02] MEDS: ZOSYN 3.375 GM in NS 50 ML IV SCH ×4 (00:25→17:17)
[2018-06-02] MEDS: POTASSIUM CHLORIDE 20 MEQ/SWI 20 MEQ/100 ML IVPB IV SCH ×4 (01:17→20:54)
[2018-06-02] MEDS ORDERED: NS 1,000 ML ONE (01:41)
[2018-06-02] MEDS: DUONEB (A & A) INH SCH ×2 (03:09→09:32)
[2018-06-02 07:07] LABS: BASO# 0.02 X1000 (0.0-0.2); BASO% 0.1 % (0.0-0.8); HEMATOCRIT 32.9 % (42.0-52.0); HEMOGLOBIN 10.8 g/dL (14.0-18.0); IMM GRAN# 0.22 X1000 (0.0-0.04); IMM GRAN% 0.9 % (0.0-0.5); LYMPH% 5.4 % (20.5-51.1); MCH 27.2 PG (27-31); MCHC 32.8 g/dL (33-37); MCV 82.9 FL (81-99); MONO# 1.01 X1000 (0.11-0.59); MONO% 4.2 % (1.7-9.3); MPV 10.8 FL (7.4-10.4); NEUT# 21.38 X1000 (1.4-6.5); NEUT% 89.4 % (42.2-75.2); PLT 161 X1000 (130-400); RBC 3.97 XMIL (4.7-6.1); RDW 16.7 % (11.5-14.5); WBC 23.93 X1000 (4.8-10.8)
[2018-06-02 07:20] LABS: ALBUMIN 2.9 g/dL (3.5-5.0); CREATININE 2.1 mg/dL (0.7-1.2); POTASSIUM 2.9 mmol/L (3.5-5.1); TOTAL BILIRUBIN 0.62 mg/dL (0.20-1.00); TOTAL PROTEIN 5.9 g/dL (6.3-8.3)
[2018-06-02] MEDS ORDERED: POTASSIUM CHLORIDE 60 MEQ in NS 500 ML IV ONE (08:55)
[2018-06-02] MEDS ORDERED: SAMSCA PO ONE (09:00)
[2018-06-02] MEDS: MYCOSTATIN SUSP PO SCH ×4 (09:03→20:55)
[2018-06-02] MEDS: BACTROBAN OINTMENT TOP SCH ×2 (09:03→20:55)
[2018-06-02] MEDS ORDERED: HYDROCODONE/APAP 7.5-325/15 ML PO PRN (09:27)
--- NOTE | 2018-06-02 10:10 | PROGRESS NOTE ---
DATE: 06/02/2018 SUBJECTIVE: The patient is more alert and awake. He reports he is still in pain, and the medication that he is receiving does not last too long. OBJECTIVE: Vital Signs: Temperature 98.4 degrees, heart rate 104, respiratory rate 20, blood pressure 107/71, and O2 saturation 98% on room air. General: This is a chronically ill appearing 32-year-old male lying in bed in no acute distress. HEENT: Normocephalic and atraumatic. No JVD noted. No carotid bruits. No lymphadenopathy. No thyromegaly. Cardiovascular: S1, S2 heard. No murmurs or gallops. Regular rate and rhythm. Respiratory: Decreased breath sounds with some coarse breath sounds in both pulmonary bases. Patient is not using any accessory muscles or having work up breathing. Abdomen: Soft and distended. Multiple masses noted in the abdomen, right and left lower quadrant painful to palpation. Extremities: Right lower extremity, there is swelling and has also signs of cellulitis. Left lower extremity 2 to 3+ pedal edema in the dorsal aspect of the left foot. Neurological: Patient is definitely more alert and awake. Moves 4 extremities. His speech is coherent. LABORATORY DATA: White cell count 23.93, hemoglobin 10.8, hematocrit 32.9, and platelets 161,000 with sodium 124, potassium 2.9, and creatinine 2.1. ASSESSMENT AND PLAN: 1. Large volume ascites and bilateral pleural effusion. Patient had a paracentesis the day before yesterday. Patient refused thoracentesis. That is most likely malignant ascites. The patient now still complaining of abdominal pain. We will adjust the doses of his pain medications. 2. 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 Will provide Samsca, and will see how he does. 3. Bilateral lower extremity cellulitis in the right leg. Dr. Fagan from infectious disease is following this patient. Currently, this patient is on Zyvox and Zosyn. We will continue to monitor this patient closely. 4. Clostridium difficile colitis. Patient is on vancomycin 125 mg p.o. q.6 hours as per ID. We will continue with the same management. 5. Metastatic malignancy of unknown origin. Dr. Garrison has been consulted and they recommend hospice for this patient. 6. Code status. Do not resuscitate level 1. 7. Disposition. At this point, we have talked with palliative care, and our plan is to continue to treat this patient actively. cc: Anjel Vega MD [facility]
[2018-06-02] MEDS: ZYVOX 600 MG/D5W 600 MG/300 ML IVPB IV SCH ×2 (13:30→20:54)
[2018-06-02 14:09] LABS: CALCIUM 7.7 mg/dL (8.8-10.2); CREATININE 2.1 mg/dL (0.7-1.2); POTASSIUM 3.2 mmol/L (3.5-5.1)
--- NOTE | 2018-06-02 14:19 | INFECTIOUS DISEASE PROGRESS NO ---
DATE: 06/02/2018 PRESENT ILLNESS: The patient has the followin. Clostridium difficile diarrhea. 2. Right leg cellulitis. 3. Oral candidiasis. 4. Possible peritonitis. MEDICATIONS: The patient is on the 5th day of treatment with Zyvox and Zosyn and the second day of treatment with p.o. vancomycin. HEIGHT/WEIGHT: The patient is 5 feet 10 inches tall, weighs 175 pounds. PHYSICAL EXAMINATION: Vital Signs: Temperature is 97.2 degrees, pulse 90, respirations 20, blood pressure 90/66. General: This is a chronically ill and malnourished-appearing, young man. He is lethargic. Head/eyes/ears/nose/throat: He can hear my spoken words and see near objects. He has less of a white coating on his tongue. Neck: No meningismus. Lungs: Clear to auscultation. Cardiovascular: Heart rate is regular. Abdomen: Protuberant and slightly firm, but not tender. Neurologic: The patient is lethargic. He can move his extremities. There is no tremor. LABORATORY AND X-RAY: The patient's CBC today shows the white count has decreased to 23,930, hemoglobin 10.8 and platelet count 161,000. Creatinine is 2.1. GFR is 37. There is no new radiographic study today. ASSESSMENT AND PLAN: 1. As mentioned above, the patient has Clostridium difficile diarrhea, right leg cellulitis, oral candidiasis, and possible peritonitis. I plan to continue the current antimicrobial agents. 2. Comorbidities: Unfortunately, he has a disseminated malignancy, the origin of which is uncertain. The patient also smoked cigarettes. cc: Edgar Fagan MD
[2018-06-03] MEDS: ZOSYN 3.375 GM in NS 50 ML IV SCH ×4 (00:19→18:24)
[2018-06-03] MEDS: VANCOCIN PO SCH ×5 (00:19→20:22)
[2018-06-03] MEDS: ZOFRAN IV PRN ×7 (00:19→20:23)
[2018-06-03] MEDS: DILAUDID IV PRN ×7 (00:20→20:22)
[2018-06-03 09:23] LABS: BASO# 0.03 X1000 (0.0-0.2); BASO% 0.1 % (0.0-0.8); EOS# 0.03 X1000 (0.0-0.7); EOS% 0.1 % (0.0-10.0); HEMATOCRIT 34.4 % (42.0-52.0); HEMOGLOBIN 11.1 g/dL (14.0-18.0); IMM GRAN# 0.27 X1000 (0.0-0.04); IMM GRAN% 1.1 % (0.0-0.5); LYMPH# 1.46 X1000 (1.2-3.4); LYMPH% 5.9 % (20.5-51.1); MCH 27.3 PG (27-31); MCHC 32.3 g/dL (33-37); MCV 84.5 FL (81-99); MONO# 1.21 X1000 (0.11-0.59); MONO% 4.9 % (1.7-9.3); MPV 11.9 FL (7.4-10.4); NEUT# 21.68 X1000 (1.4-6.5); NEUT% 87.9 % (42.2-75.2); PLT 132 X1000 (130-400); RBC 4.07 XMIL (4.7-6.1); RDW 17.2 % (11.5-14.5); WBC 24.68 X1000 (4.8-10.8)
[2018-06-03 09:49] LABS: CALCIUM 8.5 mg/dL (8.8-10.2); CREATININE 2.6 mg/dL (0.7-1.2); POTASSIUM 3.8 mmol/L (3.5-5.1)
[2018-06-03] MEDS: MYCOSTATIN SUSP PO SCH ×4 (10:06→20:35)
[2018-06-03] MEDS: ZYVOX 600 MG/D5W 600 MG/300 ML IVPB IV SCH ×2 (10:06→20:22)
[2018-06-03] MEDS: BACTROBAN OINTMENT TOP SCH ×2 (10:08→23:50)
[2018-06-03 10:27] LABS: BANDS 6 % (0-1); LYMPHS 4 % (21-51); SEGS 90 % (42-75)
--- NOTE | 2018-06-03 10:58 | INFECTIOUS DISEASE PROGRESS NO ---
DATE: 06/03/2018 PRESENT ILLNESS: In this patient consists of Clostridium difficile diarrhea, right leg cellulitis, oral candidiasis, and possible peritonitis. MEDICATIONS: This is the sixth day of treatment with Zyvox and Zosyn, and the third day of treatment with p.o. vancomycin. PHYSICAL EXAMINATION: Vital Signs: Temperature is 97.4 degrees, pulse 104, respirations 16, blood pressure 94/59. General: This is a chronically ill and malnourished- appearing, young male. He is lethargic. He does not appear to be in any acute distress. Head, Eyes, Ears, Nose, and Throat: He can hear my spoken words and see near objects. He does not have any white coating on his tongue currently. Neck: No meningismus. Lungs: Clear to auscultation. Cardiovascular: Heart rate is regular. Abdomen: Protuberant and slightly firm. It is not tender to light palpation. Neurologic: The patient is lethargic. He can move his extremities. He does not have a tremor. Extremities: The patient's left leg is less swollen and less erythematous that it had been. Also, it has less of a drainage. LAB AND X-RAY: The CBC today shows a white count of 24,680, hemoglobin 11.1, and platelet count of 132,000. Creatinine is 2.6. GFR is 29. Culture from the patient's left leg is growing gram- positive cocci. ASSESSMENT AND PLAN: The patient has Clostridium difficile diarrhea, right leg cellulitis, oral candidiasis, and possible peritonitis. I plan to continue the current antibiotics. I have empirically placed the patient on micafungin in case there is a fungal infection causing the persistent leukocytosis. COMORBIDITIES: Unfortunately, he has a disseminated malignancy, the origin of which is uncertain. The patient also is a cigarette smoker. cc: Edgar Fagan MD [facility]
[2018-06-03] MEDS: MYCAMINE 100 MG in NS 100 ML IV SCH (15:10)
--- NOTE | 2018-06-03 15:10 | PROGRESS NOTE ---
DATE: 06/03/2018 SUBJECTIVE: Patient is a little more alert and awake. He reports pain is under control. OBJECTIVE: Vital Signs: Temperature 98.0 degrees, heart rate 98, respiratory rate 18, blood pressure 102/60, O2 saturation 97% on room air. General examination: This is a chronically ill- appearing and frail, 32-year-old male, lying in bed, in no acute distress. HEENT: Head is normocephalic, atraumatic. Neck: No JVD noted. No carotid bruits. No lymphadenopathy. No thyromegaly. Cardiovascular: S1, S2 heard. No murmurs, gallops, or rubs. Regular rate and rhythm. Respiratory: Decreased breath sounds with minimal coarse breath sounds in both pulmonary bases. Patient is not using any accessory muscles or having work of breathing. Abdomen: Soft, nondistended. Multiple masses noted in the abdomen, right and left lower quadrant that are painful to palpation. Extremities: Right lower extremity, there is swelling and also signs of cellulitis. Left lower extremity, 2 to 3+ pitting edema in the dorsal aspect of the left foot. Neurological: Patient is awake, alert. Moves 4 extremities. His speech is coherent. LABORATORY DATA: White cell count 24.68, hemoglobin 11.1, hematocrit 34.4, platelets 132,000. BMP remarkable for creatinine 2.6, sodium 125. ASSESSMENT AND PLAN: 1. Large volume ascites and bilateral pleural effusion. That is most likely malignant. The patient has had a paracentesis 2 days ago. The patient refused thoracentesis. As we mentioned before, this is most likely malignant ascites. Patient reports that he needs to have a paracentesis repeated again but I do not see any major changes in terms of ascites. We can do an abdominal ultrasound tomorrow and we will go from there. 2. Hyponatremia secondary to syndrome of inappropriate antidiuretic hormone due to malignancy. Samsca 30 mg has been provided but patient is still having low sodium. Will continue to monitor this patient. 3. Bilateral lower extremity cellulitis. Dr. Fagan is providing Zyvox and Zosyn for this patient. We will continue to monitor. 4. Clostridium difficile colitis. Patient continues to be on vancomycin 125 mg p.o. q.6 hours. 5. Metastatic malignancy of unknown origin. Dr. Garrison from Oncology is following this patient. We will follow recommendations. 6. Code status. Do not resuscitate level 1. 7. Disposition. We will continue to monitor this patient closely here on the floor. cc: Anjel Vega MD
[2018-06-04] MEDS: DILAUDID IV PRN ×8 (00:32→22:48)
[2018-06-04] MEDS: ZOFRAN IV PRN ×8 (00:32→22:49)
[2018-06-04] MEDS: ZOSYN 3.375 GM in NS 50 ML IV SCH ×2 (00:32→05:26)
[2018-06-04] MEDS: VANCOCIN PO SCH ×4 (02:14→22:13)
[2018-06-04 06:55] LABS: BASO# 0.03 X1000 (0.0-0.2); BASO% 0.1 % (0.0-0.8); EOS# 0.09 X1000 (0.0-0.7); EOS% 0.3 % (0.0-10.0); HEMATOCRIT 34.7 % (42.0-52.0); HEMOGLOBIN 11.3 g/dL (14.0-18.0); IMM GRAN# 0.34 X1000 (0.0-0.04); IMM GRAN% 1.2 % (0.0-0.5); LYMPH# 1.62 X1000 (1.2-3.4); LYMPH% 5.5 % (20.5-51.1); MCHC 32.6 g/dL (33-37); MONO% 4.7 % (1.7-9.3); MPV 10.6 FL (7.4-10.4); NEUT% 88.2 % (42.2-75.2); PLT 175 X1000 (130-400); RBC 4.18 XMIL (4.7-6.1); RDW 16.9 % (11.5-14.5); WBC 29.48 X1000 (4.8-10.8)
[2018-06-04 07:11] LABS: LYMPHS 6 % (21-51); SEGS 94 % (42-75)
[2018-06-04 07:16] LABS: CALCIUM 8.8 mg/dL (8.8-10.2); CREATININE 3.1 mg/dL (0.7-1.2); POTASSIUM 4.1 mmol/L (3.5-5.1)
[2018-06-04] MEDS: ZYVOX 600 MG/D5W 600 MG/300 ML IVPB IV SCH (08:36)
[2018-06-04] MEDS: MYCOSTATIN SUSP PO SCH ×4 (08:36→22:13)
[2018-06-04] MEDS: BACTROBAN OINTMENT TOP SCH ×2 (08:54→22:49)
--- NOTE | 2018-06-04 10:51 | INFECTIOUS DISEASE PROGRESS NO ---
DATE: 06/04/2018 PRESENT ILLNESS: The patient is being treated for Clostridium difficile diarrhea, right leg cellulitis, oral candidiasis and possible peritonitis. MEDICATIONS: This is the seventh day of treatment with Zyvox and Zosyn, and the fourth day of treatment with vancomycin p.o., and the first day of treatment with micafungin. The patient also is on nystatin for oral candidiasis. PHYSICAL EXAMINATION: Vital Signs: Temperature is 97.5 degrees, pulse 109, respirations 14, blood pressure 110/57. General: This is a chronically ill and malnourished- appearing, young male. He is lethargic. He does not appear to be in any acute distress. Head, eyes, ears, nose, and throat: He can hear my spoken words and see near objects. He does not have any white patches on his tongue. Neck: No stiffness. Lungs: Clear to auscultation. Cardiovascular: Heart rate is regular. Abdomen: Protuberant and firm. It is not tender. Neurologic: Patient is lethargic. He can move his extremities. He does not have a tremor. Extremities: The patient's left leg is less swollen than it had been. Also, it is draining less and there is no necrotic tissue or large eschar. LAB AND X-RAY: The CBC shows a white count of 29,480, hemoglobin 11.3, and platelet count of 175,000. Creatinine is 3.1. GFR is 23. The culture from the patient's leg grew enterococcus. ASSESSMENT AND PLAN: The patient continues to have leukocytosis despite being on broad-spectrum antibiotic coverage. I am going to discontinue Zosyn and Zyvox. I am going to continue oral vancomycin and micafungin intravenous, and for the patient's leg cellulitis for which the culture grew Enterococcus, I am going to put the patient on amoxicillin. The patient also receives nystatin for his oral candidiasis. COMORBIDITIES: The patient has a disseminated malignancy for which the origin has not been found. The patient also smokes cigarettes. cc: Edgar Fagan MD [facility]
[2018-06-04] MEDS: MYCAMINE 100 MG in NS 100 ML IV SCH (11:04)
[2018-06-04 11:07] LABS: INR 0.98; PROTIME 13.8 Seconds (11.0-16.0)
[2018-06-04 11:08] LABS: PTT 23.7 Seconds (22.3-41.8)
--- NOTE | 2018-06-04 11:24 | PROGRESS NOTE ---
DATE: 06/04/2018 SUBJECTIVE: Patient does complain of abdominal pain, but he thinks the pain medication regimen he is on is okay. OBJECTIVE: Vital Signs: Temperature 97.5 degrees, heart rate 98, respiratory rate 18, blood pressure 110/57, O2 saturation 99% on room air. General Examination: This is a chronically ill- appearing and very malnourished, 32-year-old male, lying in bed in no acute distress. Cardiovascular exam: S1, S2 heard. No murmurs, gallops, or rubs. Regular rate and rhythm. Respiratory exam: Decreased breath sounds. Coarse breath sounds in both pulmonary bases. Patient not using any accessory muscles or having work of breathing. Abdomen: Soft. A little bit distended with ascites noted. Multiple masses noted in the abdomen, right and left lower quadrant, mildly painful to palpation. Extremities: Right lower extremity with swelling and cellulitis to the right and left lower extremity, 2+ to 3+ pitting edema in the dorsal aspect of the foot. Neurological exam: The patient is a little bit is sleepy today, but his speech is coherent. Moves 4 extremities spontaneously. LABORATORY DATA: White cell count 29.48, hemoglobin 11.3, hematocrit 34.7 platelets 175. Sodium 124, creatinine 3.1. ASSESSMENT AND PLAN: 1. Large volume ascites and bilateral pleural effusion, most likely malignant. We do not know exactly where this malignancy is coming from. In any case, the patient reported that he was having more fluid accumulating in his belly; that is why we have ordered a paracentesis ultrasound-guided. We will see what it shows. 2. Hyponatremia secondary to syndrome of inappropriate antidiuretic hormone. The patient has been taking Samsca 30 mg, but it did not help. So, at this point, I am not going to continue with this medication. 3. Bilateral lower extremity cellulitis. Patient is on Zyvox and Zosyn. The cultures have shown Enterococcus pansensitive. We will continue to monitor. 4. Clostridium difficile colitis. Patient is on vancomycin by mouth 125 mg oral every 6 hours. 5. Metastatic malignancy of unknown origin. Dr. Garrison is following this patient. 6. Code status. Do not resuscitate level 1. 7. Disposition: We will continue to monitor this patient closely. cc: Anjel Vega MD [facility]
--- NOTE | 2018-06-04 13:33 | Diag Imaging Result Doc PS360 ---
US ABD PARACENTESIS W S/I - 06/04/2018 INDICATION: malignant ascites COMPARISON: 06/08/2018 FINDINGS: The risks and benefits of the procedure were discussed with the patient. All questions were answered. Written and verbal consent was obtained. Ultrasound scanning demonstrated ascites. Overlying skin was prepped and draped in sterile fashion. Local anesthesia was achieved with injection of 10 cc 1% lidocaine. The paracentesis catheter was advanced until the return of ascites fluid. 2 L of dark red bloody fluid was aspirated. The catheter was withdrawn intact. There were no known complications. IMPRESSION: Technically successful ultrasound-guided paracentesis with no known complications. Electronically signed by Lebron Hobbs 06/04/2018 1:31 PM
[2018-06-04] MEDS: AMOXIL PO SCH ×2 (15:23→22:14)
[2018-06-05] MEDS: DILAUDID IV PRN ×7 (02:23→22:16)
[2018-06-05] MEDS: ZOFRAN IV PRN ×7 (02:23→22:16)
[2018-06-05] MEDS: VANCOCIN PO SCH ×4 (03:24→20:55)
[2018-06-05] MEDS: AMOXIL PO SCH ×3 (04:59→20:55)
[2018-06-05 06:51] LABS: BASO# 0.01 X1000 (0.0-0.2); EOS# 0.04 X1000 (0.0-0.7); EOS% 0.2 % (0.0-10.0); HEMATOCRIT 35.1 % (42.0-52.0); HEMOGLOBIN 11.4 g/dL (14.0-18.0); IMM GRAN# 0.33 X1000 (0.0-0.04); IMM GRAN% 1.5 % (0.0-0.5); LYMPH# 1.36 X1000 (1.2-3.4); LYMPH% 6.2 % (20.5-51.1); MCH 26.8 PG (27-31); MCHC 32.5 g/dL (33-37); MCV 82.6 FL (81-99); MONO# 0.83 X1000 (0.11-0.59); MONO% 3.8 % (1.7-9.3); MPV 10.4 FL (7.4-10.4); NEUT# 19.31 X1000 (1.4-6.5); NEUT% 88.3 % (42.2-75.2); PLT 167 X1000 (130-400); RBC 4.25 XMIL (4.7-6.1); WBC 21.88 X1000 (4.8-10.8)
[2018-06-05 07:27] LABS: CALCIUM 8.3 mg/dL (8.8-10.2); CREATININE 3.5 mg/dL (0.7-1.2)
[2018-06-05] MEDS: MYCOSTATIN SUSP PO SCH ×2 (09:10→09:12)
--- NOTE | 2018-06-05 09:24 | PROGRESS NOTE ---
DATE: 06/05/2018 SUBJECTIVE: Patient reports less abdominal pain and distention. He is still kind of sleepier because of pain medication he got every 3 hours over the clock. OBJECTIVE: Vital Signs: Temperature 97.4 degrees, heart rate 99, respiratory rate 16, blood pressure 107/70, O2 saturation 99% on room air. General: This is a chronically ill-appearing and frail 32-year-old male, lying in bed, in no acute distress. HEENT: Head is normocephalic, atraumatic. Mucous membranes dry. Neck: No JVD noted. No carotid bruits. No lymphadenopathy. No thyromegaly. Cardiovascular: S1, S2 heard. No murmurs, gallops or rubs. Regular rate and rhythm. Respiratory: Decreased breath sounds in both pulmonary bases. Minimal coarse breath sounds noted also. Patient is not using any accessory muscles or having work of breathing. Abdomen: Soft, a little bit distended with minimum ascites noted. Multiple masses noted in the abdomen right and left lower quadrant. Mildly painful to palpation. No signs of peritoneal irritation. Extremities: Right lower extremity with swelling and cellulitis and 2 wounds and left lower extremity with 2+ pedal edema on the dorsal aspect of the food with also some wounds noted. Neurological: Patient continues to be a little bit sleepy. Speech is coherent. Patient moves 4 extremities spontaneously. LABORATORY DATA: White cell count 21.88, hemoglobin 11.4, hematocrit 35.1, platelets 167,000 with sodium 123, creatinine 3.5. ASSESSMENT AND PLAN: 1. Large volume ascites with bilateral pleural effusion most likely malignant. Oncology is following this patient. We do not know exactly where malignancy is coming from. We have perform a paracenteses yesterday and so far, 2 liters of indolent pleural fluid has been removed. 2. 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 Getting worse. We have tried Samsca before but did not help. At this point, we will continue to monitor. 3. Acute kidney injury. Patient has become oliguric and since admission creatinine continues to get worse. Considering those facts, I prefer to consult Nephrology today. 4. Bilateral lower extremity cellulitis. The patient is being followed by Dr. Fagan from Infectious Disease. The patient has been on Zyvox and Zosyn. Because of worsening leukocytosis those medications have been stopped and the patient has been started on amoxicillin considering that what we found out in the culture is enterococcus hall sensitive. 5. Clostridium difficile colitis. The patient continues to be on vancomycin oral 125 mg p.o. every 6 hours. We will continue with the same management. 6. Metastatic malignancy of unknown origin. Dr. Garrison is following this patient. 7. Code status. Do not resuscitate level 1. 8. Disposition. Initially we were trying to send this patient to home with hospice but because this patient does not have a primary small animal caretaker at home he and the fact that he is a former sex offender it is very difficult to look for placement for this patient. In any case, we will continue treating him actively. cc: Anjel Vega MD
--- NOTE | 2018-06-05 10:01 | INFECTIOUS DISEASE PROGRESS NO ---
DATE: 06/05/2018 PRESENT ILLNESS: Patient has Clostridium difficile diarrhea, right leg cellulitis and at one time he had oral candidiasis but that has cleared at this time. The patient also may have peritonitis. MEDICATIONS: This is the 5th day of treatment with p.o. vancomycin and the first day of treatment with amoxicillin. Micafungin is in its second day of treatment. PHYSICAL EXAMINATION: Vital Signs: Temperature is 97.4 degrees, pulse 112, respirations 16, blood pressure 107/78. General: This is a chronically ill and malnourished-appearing, young male. He is lethargic. He is in no acute distress. Head, eyes, ears, nose, and throat: He can hear my spoken words and see near objects. He does not have any white patches on his tongue. Neck: No meningismus. Lungs: Clear to auscultation. Cardiovascular: Heart rate is regular. Abdomen: Protuberant and firm but not tender. Neurologic: Patient is lethargic. He is able to move extremities. He does not have a tremor. Extremities: The left leg is not erythematous and it is less swollen. The right leg is improving, but still there are some areas where there is drainage coming from superficial wounds. There is a lot of sloughing of superficial skin on the leg. LABORATORY AND X-RAY: There is no new radiographic study. The CBC shows a white count of 21,880, hemoglobin 11.4, and platelet count 167,000, creatinine is 3.5. GFR is 20. Enterococcus was isolated from the patient's right leg. ASSESSMENT AND PLAN: Yesterday I stopped the patient's Zyvox and Zosyn and his white count has come down from 29,000 to 21,000. I plan to continue with amoxicillin and p.o. vancomycin. The patient did not want to take nystatin swish and swallow anymore so I have discontinued it. COMORBIDITIES: Unfortunately this is gentleman has a disseminated malignancy for which the origin has not been found. The patient also smokes cigarettes. cc: Edgar Fagan MD
[2018-06-05] MEDS: MYCAMINE 100 MG in NS 100 ML IV SCH (10:37)
--- NOTE | 2018-06-05 14:01 | NEPHROLOGY CONSULTATION ---
DATE: 06/05/2018 REASON FOR ADMISSION: Abdominal pain. REASON FOR CONSULTATION: Acute kidney injury, oliguria in the setting of malignant ascites. CONSULTING PHYSICIAN: Dr. Chavez. HISTORY OF PRESENT ILLNESS: This is a 32-year-old gentleman with metastatic malignancy of unknown origin, thought to be GI by Oncology, with involvement of lungs and liver, and recurrent malignant ascites and chronic pain. The patient was admitted on the for this. He has been treated for large volume ascites and bilateral pleural effusions. He has had paracentesis and thoracentesis. He was noted to have a SIADH. Had issues with lower extremity edema and abrasions. The patient has been on antibiotics during this time. He underwent a paracentesis most recently yesterday. The patient has been seen by Palliative Care and Hospice. His creatinine during the hospitalization initially was 1.2, has risen to 3.5. His urine output, especially over the last several days, has declined precipitously. He has received normal saline and albumin during the hospitalization. His last dose of albumin appears to have been on the . Of note, his urine output during that time was still oliguric. The patient is voiding and is incontinent as well. The patient noted to have C difficile colitis on vancomycin. The patient was trying to be sent home with home health and hospice. They have been unable to obtain a debt counselor for him. Over the last 24 hours, his urine output had continued to decline. His creatinine has continued to climb. We have been asked to see him for his acute kidney injury and oliguria. The patient did have a urine sodium which was less than 10 noted yesterday. PAST MEDICAL HISTORY: 1. Metastatic malignancy, followed by Dr. Garrison. He had initially begun chemotherapy, no longer receiving. 2. Chronic pain. 3. Nicotine dependence. 4. Recurrent malignant ascites. SURGICAL HISTORY: 1. He has had a Port-A-Cath placement and removal secondary to infection. 2. He has had testicular torsion with right orchiectomy in 2016. 3. He had spinal fusion in 1998. 4. He had a liver biopsy in 2018. ALLERGIES: None. CURRENT MEDICATIONS: Listed as 1. Amoxil. 2. Dilaudid. 3. Xopenex. 4. Micafungin. 5. Bactroban. 6. Zofran. 7. Vancomycin. FAMILY HISTORY: Noncontributory. SOCIAL HISTORY: He uses nicotine vapor. No illicit drug use. Denies alcohol use. REVIEW OF SYSTEMS: The patient currently obtunded and unable to obtain. PHYSICAL EXAMINATION: Vital Signs: Temperature 97.4 degrees, pulse 12, respiratory rate 16, blood pressure 107/78. Intake 220 mL, output not measured. General: This is a chronically ill, cachectic adult male resting in bed. He will open his eyes to verbal stimuli but then almost immediately closes them back. He does not interact, does not follow commands. HEENT: Normocephalic, atraumatic. Temporal wasting. Pupils are constricted. Oral mucosa dry. Neck: Supple. No JVD. Cardiovascular: Regular rate and rhythm. Pulmonary: He has coarse rales and rhonchi bilaterally to the upper lobes, lower, and posterior lobes was severely decreased breath sounds. Abdomen: Distended with hypoactive bowel sounds. Hepatosplenomegaly noted. : Voiding. Extremities: He has 2+ lower extremity edema. He has abrasions with drainage noted to the right lower extremity. Integumentary: Skin is pale, warm and dry otherwise. Neurologic: Again, fairly obtunded. LABORATORY DATA: WBC of 21.8, hemoglobin 11.4. Sodium 123, potassium 4.0, CO2 26, BUN 64, creatinine 3.5. His urine sodium was less than 10. ASSESSMENT/PLAN: 1. Acute kidney injury in the setting of malignant ascites. The patient has extremely low urine sodium. The patient is intravascularly volume depleted because of the lower extremity edema and ascites. The patient does not have an albumin level this morning. I will check it. I know that he has received some albumin over the last week. The patient is not a candidate for intervention in the form of dialysis. Because of his underlying disease process, any type of fluid resuscitation, would simply result in worsening ascites. He would require large doses of albumin secondary to the malignant ascites. Treatment with high doses albumin in this gentleman will not change his outcome, and as he is not receiving treatment for the underlying cause, it is unclear if such is an appropriate intervention. 2. Hyponatremia secondary to syndrome of inappropriate antidiuretic hormone, secondary to underlying processes. The patient has been on Samsca previously without improvement. He has exceptionally low urine sodium. 3. Large volume ascites with bilateral pleural effusion that is malignant. Oncology following. They believe his malignancy is related to GI. He had a paracentesis yesterday with 2 L of fluid removed. His abdomen is distended today. 4. Lower extremity cellulitis, followed by Primary and Infectious Disease. 5. Clostridium difficile colitis followed by Infectious Disease. 6. Disposition. We understand that the patient was to go home with hospice but does not have a primary debt counselor and they have been unable to obtain one. Dictated by KUMAR Carlos for Jaison Klein MD cc: Jaison Klein MD [facility]
[2018-06-06] MEDS: ZOFRAN IV PRN ×6 (01:30→19:00)
[2018-06-06] MEDS: DILAUDID IV PRN ×7 (01:31→21:22)
[2018-06-06] MEDS: VANCOCIN PO SCH ×4 (02:42→21:25)
[2018-06-06] MEDS: BACTROBAN OINTMENT TOP SCH ×3 (02:43→18:53)
[2018-06-06] MEDS: AMOXIL PO SCH ×3 (05:19→21:25)
[2018-06-06 06:20] LABS: BASO# 0.01 X1000 (0.0-0.2); HEMATOCRIT 32.2 % (42.0-52.0); HEMOGLOBIN 10.5 g/dL (14.0-18.0); IMM GRAN# 0.29 X1000 (0.0-0.04); IMM GRAN% 1.1 % (0.0-0.5); LYMPH# 1.07 X1000 (1.2-3.4); MCH 26.6 PG (27-31); MCHC 32.6 g/dL (33-37); MCV 81.7 FL (81-99); MONO# 0.99 X1000 (0.11-0.59); MONO% 3.7 % (1.7-9.3); MPV 11.3 FL (7.4-10.4); NEUT# 24.39 X1000 (1.4-6.5); NEUT% 91.2 % (42.2-75.2); PLT 178 X1000 (130-400); RBC 3.94 XMIL (4.7-6.1); RDW 16.7 % (11.5-14.5); WBC 26.75 X1000 (4.8-10.8)
[2018-06-06 06:54] LABS: CALCIUM 8.8 mg/dL (8.8-10.2); CREATININE 4.4 mg/dL (0.7-1.2); POTASSIUM 4.3 mmol/L (3.5-5.1)
[2018-06-06 07:01] LABS: LYMPHS 4 % (21-51); MONO 4 % (1-9); SEGS 92 % (42-75)
--- NOTE | 2018-06-06 10:06 | NEPHROLOGY PROGRESS NOTE ---
DATE: 06/06/2018 SUBJECTIVE: Patient is sitting up in bed. He has had coffee-grounds emesis today. He is awake today. Still minimal response. OBJECTIVE: Vital Signs: Temperature 98.9 degrees, pulse 121, respiratory rate 18, blood pressure 98/50, intake 600 mL. Output 200 mL. He is incontinent wearing an adult brief. General: This is a middle-aged gentleman sitting up in bed, chronically ill-appearing. He is cachectic. He obviously does not feel well. HEENT: Normocephalic, atraumatic with temporal wasting. Oral mucosa is dry. Neck: Supple without JVD. Cardiovascular: Regular rate and rhythm. Pulmonary: Continues with rales bilaterally and rhonchi bilateral upper lobes. He has significantly diminished breath sounds to the bases. Abdomen: Distended, tight. Denies tenderness. Genitourinary: Not inspected. He is incontinent. Extremities: 2+ lower extremity edema. He has abrasions noted bilateral lower extremities. These are open to air today. Does have some drainage noted to the right. Skin: Extremely pale, dry otherwise. LAB DATA: WBC of 26.7, hemoglobin 10.5. Sodium 123, potassium 4.3, CO2 25, creatinine 4.4 (3.5). ASSESSMENT AND PLAN: 1. Acute kidney injury in the setting of malignant ascites. We are awaiting imaging as his urine output has been significantly diminished overnight. Again this patient is not a dialysis candidate secondary to his underlying disease process. IV fluids will be of minimal assistance secondary to the fact that he will simply have worsening ascites and lower extremity edema. Discussed previously regarding treatment with albumin. 2. Disposition. The patient has been made a Do Not Resuscitate level 1. He has been evaluated by hospice. From a renal perspective, comfort measures should be pursued for this gentleman. 3. Hyponatremia secondary to SIADH secondary to his underlying disease process. Sodium has been stable overnight. 4. Large volume ascites. He has received multiple paracentesis with immediate return of ascites. This is exacerbating his acute kidney injury. 5. Clostridium difficile colitis. Followed by Infectious Disease. Dictated by KUMAR Carlos for Jaison Klein MD cc: Jaison Klein MD [facility]
[2018-06-06] MEDS: MYCAMINE 100 MG in NS 100 ML IV SCH (10:28)
--- NOTE | 2018-06-06 12:26 | PROGRESS NOTE ---
DATE: 06/06/2018 SUBJECTIVE: The patient is lying comfortably in bed. He is sleepy, and a little bit confused. Probably he just received some type of pain medication. His prognosis is extremely poor. His kidney function is getting worse. Sodium level is about the same compared with yesterday. I believe the plan is to find hospice/placement for him. He is DNR level 1. OBJECTIVE: Vital Signs: Temperature 98.9 degrees, pulse 115, respiratory rate 18, blood pressure 101/70, oxygen saturation 91% on room air. HEENT: Head normocephalic. No trauma. PERRLA. Neck: Supple. No JVD. No masses. Central trachea. Chest: Decreased breath sounds at the bases with some crackles. Cardiovascular: RRR. Tachycardic. Abdomen: Soft, distended, with multiple masses, mostly at the level of the upper abdomen, right and left quadrant, painful to palpation. Extremities: Right lower extremity is swollen, with sign of redness and multiple wounds, erythematous. The wound today is not oozing. Lower extremity edema, 2 to 3+, with an ulcerative lesion at the level of the dorsal aspect of the foot with dark base. Continue with the same management. Wound care on board. Neurologic: This patient is sleepy. He was able to say his name but he has fallen asleep right away. LABORATORY: WBC 26.7, hemoglobin 10.5, hematocrit 32.2, platelets 178,000. Sodium 123, potassium 4.3, chloride 76, bicarbonate 25, BUN 62, creatinine 4.4, glucose 109. Calcium 8.8. Magnesium 2.1. ASSESSMENT AND PLAN: 1. Large volume ascites and bilateral pleural effusion, status post paracentesis. Likely malignant ascites, 2.5 L has been removed already. Continue with same management. 2. Hyponatremia, likely secondary to SIADH due to malignancy. 3. Bilateral lower extremity edema and cellulitis on the right side. Continue with the same management. Infectious Disease is on board. 4. Acute kidney injury, likely secondary to hypotension, decreased intravascular volume. He received some albumin before. Nephrology on board. It looks like it is getting worse. 5. Clostridium difficile colitis. Continue with the same treatment. He is getting vancomycin 125 mg p.o. q.6 hours. 6. Leukocytosis. Still elevated. Infectious Disease on board. Continue with antibiotics. 7. Metastatic malignancy of unknown origin, followed by Dr. Rossy Garrison. 8. Deep vein thrombosis prophylaxis. I will continue with the same management for now. This patient has liver disease, anemia. The plan is to get hospice for this patient or placement. 9. DNR, level 1. 10. Overall, his prognosis is extremely poor due to his metastatic disease and comorbidities. We will continue with DNR level 1. cc: Pato Salas MD
[2018-06-06] MEDS: XOPENEX NEB INH PRN ×2 (13:45→19:19)
--- NOTE | 2018-06-06 13:46 | Diag Imaging Result Doc PS360 ---
US RENAL 2 (RETROPER) COMPLETE - 06/06/2018 INDICATION: decreased renal function TECHNIQUE: COMPARISON: 06/04/2018, 05/28/2018 FINDINGS: There is trace ascites. The kidneys and urinary bladder are normal. There is no hydronephrosis. The right kidney measures 11 x 5.6 x 4 cm. The left kidney measures 9.8 x 5 x 4.6 cm. IMPRESSION: No hydronephrosis. Electronically signed by Pj De Los Santos 06/06/2018 1:44 PM
[2018-06-07] MEDS: ZOFRAN IV PRN ×5 (01:29→16:04)
[2018-06-07] MEDS: DILAUDID IV PRN ×7 (01:29→18:32)
[2018-06-07] MEDS ORDERED: NS 500 ML ONE (01:31)
[2018-06-07] MEDS ORDERED: NS 500 ML IV ONE (01:41)
[2018-06-07] MEDS: VANCOCIN PO SCH ×3 (02:23→16:04)
[2018-06-07 06:06] LABS: BASO# 0.01 X1000 (0.0-0.2); BASO% 0.1 % (0.0-0.8); HEMATOCRIT 30.9 % (42.0-52.0); HEMOGLOBIN 10.1 g/dL (14.0-18.0); IMM GRAN# 0.32 X1000 (0.0-0.04); IMM GRAN% 1.7 % (0.0-0.5); LYMPH# 0.82 X1000 (1.2-3.4); LYMPH% 4.5 % (20.5-51.1); MCH 26.8 PG (27-31); MCHC 32.7 g/dL (33-37); MONO# 0.78 X1000 (0.11-0.59); MONO% 4.2 % (1.7-9.3); MPV 10.7 FL (7.4-10.4); NEUT# 16.49 X1000 (1.4-6.5); NEUT% 89.5 % (42.2-75.2); PLT 170 X1000 (130-400); RBC 3.77 XMIL (4.7-6.1); RDW 16.6 % (11.5-14.5); WBC 18.42 X1000 (4.8-10.8)
[2018-06-07] MEDS: AMOXIL PO SCH ×2 (06:13→16:03)
[2018-06-07 06:42] LABS: CALCIUM 8.9 mg/dL (8.8-10.2); CREATININE 4.8 mg/dL (0.7-1.2); MAGNESIUM 2.1 mg/dL (1.5-2.7); POTASSIUM 4.6 mmol/L (3.5-5.1)
[2018-06-07] MEDS: MYCAMINE 100 MG in NS 100 ML IV SCH (11:02)
[2018-06-07] MEDS: XOPENEX NEB INH PRN (12:36)
--- NOTE | 2018-06-07 13:54 | PROGRESS NOTE ---
DATE: 06/07/2018 SUBJECTIVE: This patient is complaining of excruciating pain, lower abdomen and hips. I have increased the frequency of his pain medication. His prognosis is extremely poor. His kidney function is getting worse. He is DNR level 1. We will try to keep him comfortable as he requested a few days ago. OBJECTIVE: Vital Signs: Temperature 97.7 degrees, pulse 102 respiratory rate 16. Blood pressure 99/61, oxygen saturation 87 on nasal cannula 4 L. HEENT: Head normocephalic. No trauma. PERRLA. Neck: Supple. No JVD. No masses. Central trachea. Chest: Decreased breath sounds at the bases with crackles. Cardiovascular: Regular rhythm and rate, tachycardic. Abdomen: Soft distended, multiple masses mostly at the level of the upper abdomen right and left quadrant. Painful to palpation. Extremities: Bilateral lower extremity edema with signs of redness multiple wounds and more edematous on the right side, right leg. The wound looks better though. Also has low left lower extremity edema around 2 to 3+ with an ulcerative lesion at the level of the dorsal aspect of the foot with a dark base continue with the same management. Wound care on board. Neurological: This patient is at this moment complaining of severe pain. He is able to say his name. He is moving all 4 extremities. LABORATORY: WBC 18.4 hemoglobin 10.1, hematocrit 30.9, platelets 178,000, sodium 128, potassium 4.6, chloride 80, bicarbonate 25, BUN 74, calcium 4.8, glucose 95, magnesium 2.1. Calcium 8.9. ASSESSMENT AND PLAN: 1. Large volume ascites and bilateral pleural effusion status post thoracentesis. He refused thoracentesis upon admission, likely this is secondary to malignant ascites. 2.5 L has been removed already continue with the same management poor prognosis. 2. Hyponatremia, likely secondary to SIADH due to malignancy. 3. Bilateral lower extremity. Edema and cellulitis on the right on the right leg, continue with the same management. Infectious Disease on board. 4. Acute kidney injury, this is multifactorial, is getting worse nephrology on board but I do not think this patient's kidney function will recover at this point. 5. Clostridium Difficile colitis, continue with the same management. He he is getting vancomycin p.o. 6. Leukocytosis, still elevated. Infectious Disease Department on board. Continue with antibiotics. 7. Metastatic malignancy of unknown origin, followed by Dr. Rossy Garrison. 8. Deep vein thrombosis prophylaxis. I will continue with the same management for now. 9. This patient is do not resuscitate level 1. 10. Overall his prognosis is extremely poor due to his multiple comorbidities and metastatic disease. We will continue with do not resuscitate and trying to keep the patient comfortable. cc: Pato Salas MD
[2018-06-07] MEDS: BACTROBAN OINTMENT TOP SCH ×2 (16:05→17:41)
[2018-06-07 22:31] VITALS: BP 88/49
--- NOTE | 2018-06-08 13:56 | DISCHARGE SUMMARY ---
ADMISSION DATE: 05/28/2018 DISCHARGE DATE: 06/07/2018 ADMITTING DIAGNOSES: 1. Large volume ascites and bilateral pleural effusions. 2. Syndrome of inappropriate antidiuretic hormone secretion. 3. Bilateral lower extremity edema/cellulitis. 4. Chronic anemia. 5. Severe protein calorie malnutrition. 6. Metastatic malignancy of unknown origin, presumably upper gastrointestinal. DISCHARGE DIAGNOSES: 1. Large volume ascites and bilateral pleural effusions. 2. Syndrome of inappropriate antidiuretic hormone secretion. 3. Bilateral lower extremity edema/cellulitis. 4. Chronic anemia. 5. Severe protein calorie malnutrition. 6. Metastatic malignancy of unknown origin, presumably upper gastrointestinal. 7. Clostridium difficile colitis. 8. Right leg cellulitis. 9. Oral candidiasis. CONSULTATIONS: Dr. Rossy Garrison with Hematology/Oncology, Dr. Edgar Fagan with Infectious Disease, and Dr. Jaison Klein with Renal. DIAGNOSTIC PROCEDURES AND FINDINGS: Chest x-ray on 05/28/2018 with no evidence of acute pathology. Head CT on 05/28/2018 with no evidence of acute intracranial pathology. Foot x-ray on 05/28/2018 with soft tissue edema of the left foot but no definite radiographic evidence of osteomyelitis. Paracentesis ultrasound on 05/29/2018 with 2.5 L of fluid removed. Renal ultrasound on 06/06/2018 with no hydronephrosis. HOSPITAL COURSE: Mr. Schofield is an unfortunate 32-year-old male with metastatic malignancy of unknown origin, presumed to be of the upper GI system, followed by Dr. Garrison, status post chemotherapy, who presented to the ER with multiple days of progressive abdominal swelling, pain, shortness of breath, and overall deconditioning/fatigue. Mr. Schofield had heavy metastatic burden in the abdomen with carcinomatosis as well as liver masses and lung masses. He was extremely cachectic and malnourished and came to the ER with abdominal swelling. He was also complaining of lower extremity edema and multiple areas of abrasions and redness and also was having diarrhea. In the ER, he was noted to have multiple laboratory derangements including leukocytosis, renal failure, hyponatremia. During his initial interview, he was also lethargic and essentially nodding out mid sentence. Head scan was checked which was negative. He was ultimately admitted with large volume ascites. He had an ultrasound-guided paracentesis done which removed 2.5 L; however, given his overall condition which was extremely poor, we discussed with him the option of Hospice which he did decide to go with. However, during his stay, he did wax and wane on his decision, sometimes changing his mind about DNR status and Hospice; however, he ultimately decided to go with Hospice. In the meantime, he had progressively worsening renal function, and diarrhea was tested positive for C. difficile. We consulted Hematology/Oncology as well as Nephrology as well as ID. Once he made up his mind regarding hospice he decided to go home with hospice care, however, on 06/07/2018 at 2020, he was found to have no pulse or respirations and was pronounced by the nursing staff (He was DNR I at that point). His body was released to his family, and he was ultimately discharged. Time of was 2019 on 06/07/2018. Cause of was metastatic malignancy of unknown origin. Dictated by KUMAR Laws for Pato Salas MD cc: KUMAR Laws MD Heather Shah, MD Leroy F. Harris, MD Reginald D. Gladish, MD MTDD
== END 2018-06-07 20:20 | disposition expired | DRG 374 ==
LOC: SUPCPDRO → ED 08:58 → SUATTDRO 16:20 → 4N 16:20
PROVIDERS: ATTEND Internal Medicine
CPT/HCPCS: 49083; 70450; 71010; 71045; 73630; 74177; 76770; 80048; 80053; 80101; 80301; 80307; 80324; 80345; 80346; 80353; 80358; 80361; 80365; 81001; 82040; 82042; 82140; 82150; 82550; 82570; 82607; 82728; 82746; 82805; 83540; 83550; 83605; 83615; 83690; 83735; 83930; 83935; 83992; 84300; 84443; 84484; 85025; 85610; 85730; 87040; 87070; 87077; 87186; 87324; 87449; 89051; 93970; 94640; 94761; 96361; 96374; 96375; 96376; 99285; A9270; G0431; G0434; G0479; G0480; J1170; J1940; J2020; J2248; J2405; J2543; J3480; J7030; J7040; P9047; Q9967